=== PATIENT | female | born 1940 | race Caucasian/White ===

== ENCOUNTER → 2017-11-29 | Outpatient (CLI) | payer MEDICARE, OTHER ==
[~2017-11-29] MED LIST: ALBIPROI INH; ALBU90OI INH; ALBU90OI6 INH; ALBU90OI61 INH; AZIT250 PO; CEPH500 PO; COMBIVENT RESPIM4 GM INH; DULERA 200 MCG/13 GM INH; GUAI600T33 PO; LORA.5 PO; MECL25 PO; METPRE4DP PO; NAPR250 PO; PRED20 PO; Prednisone20 MG PO; VARE1 PO; Ventolin/Prove6.7 GM INH; Zithromax250 MG PO; Zofran Odt4 MG SL
[2017-11-29 16:57] LABS: BASOPHILS ABSOLUTE AUTO 0.09 K/mm3 (0.00-0.23); BASOPHILS PERCENT AUTO 1 % (0-2); EOSINOPHILS ABSOLUTE AUTO 0.19 K/mm3 (0.00-0.68); EOSINOPHILS PERCENT AUTO 3 % (0-6); Hematocrit 46.4 % (33.0-51.0); Hemoglobin 15.5 g/dL (11.5-16.0); IMMATURE GRAN ABSOLUTE AUTO 0.01 K/mm3 (0.00-0.10); IMMATURE GRAN PERCENT AUTO 0 % (0-1); LYMPHOCYTES ABSOLUTE AUTO 2.94 K/mm3 (0.84-5.20); LYMPHOCYTES PERCENT AUTO 41 % (21-46); MONOCYTES ABSOLUTE AUTO 0.48 K/mm3 (0.16-1.47); MONOCYTES PERCENT AUTO 7 % (4-13); Mean Corpuscular HGB 29.2 pg (26.0-34.0); Mean Corpuscular HGB Conc 33.4 g/dL (31.5-36.5); Mean Corpuscular Volume 88 fL (80-100); Mean Platelet Volume 8.4 fL (9.1-12.4); NEUTROPHILS ABSOLUTE AUTO 3.52 K/mm3 (1.96-9.15); NEUTROPHILS PERCENT AUTO 49 % (41-73); Platelet Count 397 K/mm3 (150-400); RDW Coefficient Variation 13.7 % (11.7-14.2); RDW Standard Deviation 44.1 fL (35.1-46.3); White Blood Cell Count 7.23 K/mm3 (4.00-11.30)
[2017-11-29 17:12] LABS: Alanine Aminotransfer (ALT/SGP 16 U/L (12-78); Albumin, Blood 4.3 g/dL (3.4-5.0); Albumin/Globulin Ratio 1.2 (0.8-1.8); Alk Phos 54 U/L (40-126); Anion Gap 9 mmol/L (6-16); Aspartate Aminotrans (AST/SGOT 15 U/L (12-37); Bilirubin, Total 0.4 mg/dL (0.1-1.0); Blood Urea Nitrogen 13 mg/dL (8-24); CO2, Blood 28 mmol/L (21-32); Calcium, Blood 9.2 mg/dL (8.5-10.1); Chloride, Blood 101 mmol/L (98-108); Creatinine, Blood 0.62 mg/dL (0.40-1.00); Globulin, Blood 3.6 g/dL (2.2-4.0); Glomerular Filtration Rate >60 (60-); Glucose, Blood 87 mg/dL (70-99); Sodium, Blood 138 mmol/L (136-145); Total Protein, Blood 7.9 g/dL (6.4-8.2)
[2017-11-29 17:15] LABS: Troponin I <0.017 ng/mL (0.000-0.040)
== END | disposition home or self-care (01) ==
LOC: LAB SHORT 16:50 → LAB EV 16:50
PROVIDERS: General Practice
DX: R06.00 Dyspnea, unspecified (principal)
CPT/HCPCS: 80053; 83880; 84484; 85025; 85379

== ENCOUNTER 2018-02-25 22:38 | Inpatient (IN) | payer MEDICARE, OTHER ==
[~2018-02-25] VITALS: Ht 165.1 cm; Wt 40.4 kg
[2018-02-25 23:20] LABS: BASOPHILS ABSOLUTE AUTO 0.09 K/mm3 (0.00-0.23); BASOPHILS PERCENT AUTO 1 % (0-2); EOSINOPHILS ABSOLUTE AUTO 0.13 K/mm3 (0.00-0.68); EOSINOPHILS PERCENT AUTO 1 % (0-6); Hematocrit 45.8 % (33.0-51.0); Hemoglobin 15.1 g/dL (11.5-16.0); IMMATURE GRAN ABSOLUTE AUTO 0.02 K/mm3 (0.00-0.10); IMMATURE GRAN PERCENT AUTO 0 % (0-1); LYMPHOCYTES ABSOLUTE AUTO 4.38 K/mm3 (0.84-5.20); LYMPHOCYTES PERCENT AUTO 46 % (21-46); MONOCYTES ABSOLUTE AUTO 0.57 K/mm3 (0.16-1.47); MONOCYTES PERCENT AUTO 6 % (4-13); Mean Corpuscular HGB 29.2 pg (26.0-34.0); Mean Corpuscular Volume 89 fL (80-100); Mean Platelet Volume 8.6 fL (9.1-12.4); NEUTROPHILS ABSOLUTE AUTO 4.42 K/mm3 (1.96-9.15); NEUTROPHILS PERCENT AUTO 46 % (41-73); Platelet Count 294 K/mm3 (150-400); RDW Coefficient Variation 14.1 % (11.7-14.2); RDW Standard Deviation 45.8 fL (35.1-46.3); Red Blood Cell Count 5.17 M/mm3 (3.80-5.20); White Blood Cell Count 9.61 K/mm3 (4.00-11.30)
[2018-02-25 23:42] LABS: Alanine Aminotransfer (ALT/SGP 19 U/L (12-78); Albumin, Blood 4.1 g/dL (3.4-5.0); Albumin/Globulin Ratio 1.2 (0.8-1.8); Alk Phos 49 U/L (50-136); Anion Gap 10 mmol/L (6-16); Aspartate Aminotrans (AST/SGOT 15 U/L (12-37); Bilirubin, Total 0.3 mg/dL (0.1-1.0); Blood Urea Nitrogen 11 mg/dL (8-24); Bun/Creatinine Ratio 23.5 (12.0-20.0); CO2, Blood 25 mmol/L (21-32); Calcium, Blood 8.1 mg/dL (8.5-10.1); Chloride, Blood 105 mmol/L (98-108); Creatinine, Blood 0.47 mg/dL (0.40-1.00); Globulin, Blood 3.3 g/dL (2.2-4.0); Glomerular Filtration Rate >60 (60-); Glucose, Blood 82 mg/dL (70-99); Potassium, Blood 3.4 mmol/L (3.5-5.5); Sodium, Blood 140 mmol/L (136-145); Total Protein, Blood 7.4 g/dL (6.4-8.2)
[2018-02-26 00:13] LABS: Source, Urine Voided
[2018-02-26 00:19] LABS: Bilirubin, Urine Neg (Neg); Blood, Urine 3+ (Neg); Glucose Qualitative, Urine Neg (Neg); Ketones, Urine 1+ (Neg); Leukocyte Esterase, Urine Neg (Neg); Nitrite, Urine Pos (Neg); Protein, Urine 2+ (Neg); Urobilinogen, Urine NORM (Normal)
[2018-02-26 00:27] LABS: Appearance, Urine Hazy (Clear); Color, Urine Pale Yellow (P-Yellow)
[2018-02-26 00:28] LABS: Bacteria Many /hpf; Squamous Epithelial Cells Few /hpf (Few)
[2018-02-26 01:15] LABS: International Normalized Ratio 0.99; Prothrombin Time Results 10.2 Sec (9.7-11.5)
[2018-02-26 04:59] LABS: Hematocrit 42.1 % (33.0-51.0); Hemoglobin 13.7 g/dL (11.5-16.0); Mean Corpuscular HGB 28.3 pg (26.0-34.0); Mean Corpuscular HGB Conc 32.5 g/dL (31.5-36.5); Mean Corpuscular Volume 87 fL (80-100); Mean Platelet Volume 8.7 fL (9.1-12.4); Platelet Count 309 K/mm3 (150-400); RDW Coefficient Variation 14.1 % (11.7-14.2); RDW Standard Deviation 45.2 fL (35.1-46.3); Red Blood Cell Count 4.84 M/mm3 (3.80-5.20); White Blood Cell Count 8.85 K/mm3 (4.00-11.30)
[2018-02-26 05:29] LABS: Alanine Aminotransfer (ALT/SGP 17 U/L (12-78); Albumin, Blood 3.7 g/dL (3.4-5.0); Albumin/Globulin Ratio 1.2 (0.8-1.8); Alk Phos 45 U/L (50-136); Anion Gap 13 mmol/L (6-16); Aspartate Aminotrans (AST/SGOT 20 U/L (12-37); Bilirubin, Total 1.2 mg/dL (0.1-1.0); Blood Urea Nitrogen 11 mg/dL (8-24); Bun/Creatinine Ratio 27.7 (12.0-20.0); CO2, Blood 21 mmol/L (21-32); Chloride, Blood 108 mmol/L (98-108); Globulin, Blood 3.1 g/dL (2.2-4.0); Glomerular Filtration Rate >60 (60-); Glucose, Blood 217 mg/dL (70-99); Potassium, Blood 3.5 mmol/L (3.5-5.5); Sodium, Blood 142 mmol/L (136-145); Total Protein, Blood 6.8 g/dL (6.4-8.2)
[2018-02-26 08:54] LABS: Troponin I 0.804 ng/mL (0.000-0.040)
[2018-02-26 16:07] LABS: Troponin I 0.671 ng/mL (0.000-0.040)
[2018-02-27] MEDS ORDERED: BUSP5 PO (14:48)
[2018-02-27] MEDS ORDERED: COMBIVENT RESPIM4 GM INH (14:48)
[2018-02-27] MEDS ORDERED: Nitrostat0.4 MG SL (16:11)
== END 2018-02-26 17:58 | disposition left against medical advice (07) | DRG 280 ==
LOC: ER 22:38 → MEDS 22:39
PROVIDERS: Emergency Medicine; Internal Medicine
DX: I21.A1 Myocardial infarction type 2 (principal); J96.90 Respiratory failure, unspecified, unspecified whether with hypoxia or hypercapnia; J44.1 Chronic obstructive pulmonary disease with (acute) exacerbation; F41.9 Anxiety disorder, unspecified; F17.210 Nicotine dependence, cigarettes, uncomplicated; E87.6 Hypokalemia; E78.5 Hyperlipidemia, unspecified; Z53.20 Procedure and treatment not carried out because of patient's decision for unspecified reasons; I25.10 Atherosclerotic heart disease of native coronary artery without angina pectoris; Z99.81 Dependence on supplemental oxygen
CPT/HCPCS: 36415; 71046; 80053; 81001; 82550; 83880; 84484; 85025; 85027; 85610; 85730; 87077; 87086; 87186; 93005; 93010; 93306; 94640; 94760; 96361; 96365; 96375; 96376; 99285; G0378; J0696; J1644; J2930; J7030

== ENCOUNTER → 2018-02-27 | Outpatient (CLI) | payer MEDICARE ==
[~2018-02-27] MED LIST changes: +BUSP5 PO; +Nitrostat0.4 MG SL
[2018-02-27 13:52] LABS: BASOPHILS ABSOLUTE AUTO 0.03 K/mm3 (0.00-0.23); BASOPHILS PERCENT AUTO 0 % (0-2); EOSINOPHILS PERCENT AUTO 0 % (0-6); Hematocrit 42.1 % (33.0-51.0); Hemoglobin 14.5 g/dL (11.5-16.0); IMMATURE GRAN ABSOLUTE AUTO 0.06 K/mm3 (0.00-0.10); IMMATURE GRAN PERCENT AUTO 0 % (0-1); LYMPHOCYTES ABSOLUTE AUTO 3.39 K/mm3 (0.84-5.20); LYMPHOCYTES PERCENT AUTO 24 % (21-46); MONOCYTES ABSOLUTE AUTO 1.06 K/mm3 (0.16-1.47); MONOCYTES PERCENT AUTO 7 % (4-13); Mean Corpuscular HGB 29.8 pg (26.0-34.0); Mean Corpuscular HGB Conc 34.4 g/dL (31.5-36.5); Mean Corpuscular Volume 87 fL (80-100); Mean Platelet Volume 8.8 fL (9.1-12.4); NEUTROPHILS ABSOLUTE AUTO 9.79 K/mm3 (1.96-9.15); NEUTROPHILS PERCENT AUTO 68 % (41-73); Platelet Count 365 K/mm3 (150-400); RDW Coefficient Variation 14.7 % (11.7-14.2); RDW Standard Deviation 46.7 fL (35.1-46.3); Red Blood Cell Count 4.86 M/mm3 (3.80-5.20); White Blood Cell Count 14.33 K/mm3 (4.00-11.30)
[2018-02-27 14:11] LABS: Alanine Aminotransfer (ALT/SGP 16 U/L (12-78); Albumin, Blood 4.1 g/dL (3.4-5.0); Albumin/Globulin Ratio 1.5 (0.8-1.8); Alk Phos 44 U/L (40-126); Anion Gap 14 mmol/L (6-16); Aspartate Aminotrans (AST/SGOT 15 U/L (12-37); Bilirubin, Total 0.3 mg/dL (0.1-1.0); Blood Urea Nitrogen 19 mg/dL (8-24); Bun/Creatinine Ratio 25.3 (12.0-20.0); CO2, Blood 23 mmol/L (21-32); CPK Creatine Kinase 119 U/L (26-192); Calcium, Blood 9.3 mg/dL (8.5-10.1); Chloride, Blood 104 mmol/L (98-108); Creatinine, Blood 0.75 mg/dL (0.40-1.00); Globulin, Blood 2.7 g/dL (2.2-4.0); Glomerular Filtration Rate >60 (60-); Glucose, Blood 96 mg/dL (70-99); Potassium, Blood 4.3 mmol/L (3.5-5.5); Sodium, Blood 141 mmol/L (136-145); Thyroid Stimulating Hormone 1.813 uIU/mL (0.360-4.800); Total Protein, Blood 6.8 g/dL (6.4-8.2); Troponin I 0.436 ng/mL (0.000-0.040)
== END ==
LOC: LAB SHORT 13:44 → LAB EV 13:44
PROVIDERS: General Practice
DX: J44.9 Chronic obstructive pulmonary disease, unspecified (principal); I21.9 Acute myocardial infarction, unspecified; R53.81 Other malaise
CPT/HCPCS: 80053; 82550; 84443; 84484; 85025; 85379

== ENCOUNTER 2018-03-03 10:55 | Observation (INO) | payer MEDICARE ==
[~2018-03-03] VITALS: Ht 165.1 cm; Wt 45.5 kg
[2018-03-03] MEDS ORDERED: ATOR40TA PO (11:19)
[2018-03-03] MEDS ORDERED: LISI20 PO (11:20)
[2018-03-03] MEDS ORDERED: METO25ER PO (11:20)
[2018-03-03 11:21] LABS: BASOPHILS ABSOLUTE AUTO 0.05 K/mm3 (0.00-0.23); BASOPHILS PERCENT AUTO 1 % (0-2); EOSINOPHILS ABSOLUTE AUTO 0.16 K/mm3 (0.00-0.68); EOSINOPHILS PERCENT AUTO 2 % (0-6); Hematocrit 47.2 % (33.0-51.0); Hemoglobin 15.5 g/dL (11.5-16.0); IMMATURE GRAN ABSOLUTE AUTO 0.02 K/mm3 (0.00-0.10); IMMATURE GRAN PERCENT AUTO 0 % (0-1); LYMPHOCYTES ABSOLUTE AUTO 2.54 K/mm3 (0.84-5.20); LYMPHOCYTES PERCENT AUTO 34 % (21-46); MONOCYTES ABSOLUTE AUTO 0.34 K/mm3 (0.16-1.47); MONOCYTES PERCENT AUTO 5 % (4-13); Mean Corpuscular HGB 29.4 pg (26.0-34.0); Mean Corpuscular HGB Conc 32.8 g/dL (31.5-36.5); Mean Corpuscular Volume 90 fL (80-100); Mean Platelet Volume 8.4 fL (9.1-12.4); NEUTROPHILS ABSOLUTE AUTO 4.38 K/mm3 (1.96-9.15); NEUTROPHILS PERCENT AUTO 59 % (41-73); Platelet Count 371 K/mm3 (150-400); RDW Coefficient Variation 14.1 % (11.7-14.2); RDW Standard Deviation 47.1 fL (35.1-46.3); Red Blood Cell Count 5.27 M/mm3 (3.80-5.20); White Blood Cell Count 7.49 K/mm3 (4.00-11.30)
[2018-03-03 11:40] LABS: Alanine Aminotransfer (ALT/SGP 19 U/L (12-78); Albumin, Blood 4.1 g/dL (3.4-5.0); Albumin/Globulin Ratio 1.3 (0.8-1.8); Alk Phos 48 U/L (50-136); Anion Gap 10 mmol/L (6-16); Aspartate Aminotrans (AST/SGOT 14 U/L (12-37); Bilirubin, Total 0.4 mg/dL (0.1-1.0); Blood Urea Nitrogen 13 mg/dL (8-24); Bun/Creatinine Ratio 25.1 (12.0-20.0); CO2, Blood 26 mmol/L (21-32); Calcium, Blood 8.8 mg/dL (8.5-10.1); Chloride, Blood 103 mmol/L (98-108); Creatinine, Blood 0.52 mg/dL (0.40-1.00); Globulin, Blood 3.2 g/dL (2.2-4.0); Glomerular Filtration Rate >60 (60-); Glucose, Blood 70 mg/dL (70-99); Potassium, Blood 3.6 mmol/L (3.5-5.5); Sodium, Blood 139 mmol/L (136-145); Total Protein, Blood 7.3 g/dL (6.4-8.2); Troponin I <0.015 ng/mL (0.000-0.040)
[2018-03-04 05:13] LABS: BASOPHILS ABSOLUTE AUTO 0.06 K/mm3 (0.00-0.23); BASOPHILS PERCENT AUTO 1 % (0-2); EOSINOPHILS ABSOLUTE AUTO 0.19 K/mm3 (0.00-0.68); EOSINOPHILS PERCENT AUTO 2 % (0-6); Hematocrit 43.2 % (33.0-51.0); IMMATURE GRAN ABSOLUTE AUTO 0.01 K/mm3 (0.00-0.10); IMMATURE GRAN PERCENT AUTO 0 % (0-1); LYMPHOCYTES ABSOLUTE AUTO 3.98 K/mm3 (0.84-5.20); LYMPHOCYTES PERCENT AUTO 51 % (21-46); MONOCYTES ABSOLUTE AUTO 0.58 K/mm3 (0.16-1.47); MONOCYTES PERCENT AUTO 7 % (4-13); Mean Corpuscular HGB 28.7 pg (26.0-34.0); Mean Corpuscular HGB Conc 32.4 g/dL (31.5-36.5); Mean Corpuscular Volume 89 fL (80-100); Mean Platelet Volume 8.7 fL (9.1-12.4); NEUTROPHILS ABSOLUTE AUTO 2.98 K/mm3 (1.96-9.15); NEUTROPHILS PERCENT AUTO 38 % (41-73); Platelet Count 376 K/mm3 (150-400); RDW Coefficient Variation 14.3 % (11.7-14.2); RDW Standard Deviation 46.2 fL (35.1-46.3); Red Blood Cell Count 4.87 M/mm3 (3.80-5.20)
[2018-03-04 05:44] LABS: Alanine Aminotransfer (ALT/SGP 18 U/L (12-78); Albumin, Blood 3.7 g/dL (3.4-5.0); Albumin/Globulin Ratio 1.2 (0.8-1.8); Alk Phos 42 U/L (50-136); Anion Gap 9 mmol/L (6-16); Aspartate Aminotrans (AST/SGOT 14 U/L (12-37); Bilirubin, Total 0.5 mg/dL (0.1-1.0); Blood Urea Nitrogen 16 mg/dL (8-24); Bun/Creatinine Ratio 25.9 (12.0-20.0); CO2, Blood 27 mmol/L (21-32); Calcium, Blood 8.5 mg/dL (8.5-10.1); Chloride, Blood 105 mmol/L (98-108); Creatinine, Blood 0.62 mg/dL (0.40-1.00); Globulin, Blood 3.2 g/dL (2.2-4.0); Glomerular Filtration Rate >60 (60-); Glucose, Blood 87 mg/dL (70-99); Potassium, Blood 3.7 mmol/L (3.5-5.5); Sodium, Blood 141 mmol/L (136-145); Total Protein, Blood 6.9 g/dL (6.4-8.2)
[2018-03-04] MEDS ORDERED: ASPI325 PO (18:28)
== END 2018-03-04 18:44 | disposition home or self-care (01) ==
LOC: ER 10:55 → MEDS 10:56 → ER 12:11 → MEDS 12:11
PROVIDERS: Emergency Medicine; Hospitalist
DX: R06.02 Shortness of breath (principal); R79.89 Other specified abnormal findings of blood chemistry; J44.9 Chronic obstructive pulmonary disease, unspecified; E78.5 Hyperlipidemia, unspecified; F41.9 Anxiety disorder, unspecified; F17.210 Nicotine dependence, cigarettes, uncomplicated; I10 Essential (primary) hypertension; Z86.73 Personal history of transient ischemic attack (TIA), and cerebral infarction without residual deficits; Z88.0 Allergy status to penicillin; Z88.1 Allergy status to other antibiotic agents; Z88.5 Allergy status to narcotic agent; Z79.899 Other long term (current) drug therapy; Z79.82 Long term (current) use of aspirin
CPT/HCPCS: 36415; 71046; 78452; 80053; 84484; 85025; 93005; 93010; 93017; 94640; 94667; 94760; 94761; 94762; 99285-25; A9500; G0378; J0706; J2785

== ENCOUNTER → 2018-04-13 | Outpatient (CLI) | payer MEDICARE ==
[~2018-04-13] MED LIST changes: +ASPI325 PO; +ATOR40TA PO; +LISI20 PO; +METO25ER PO
== END ==
LOC: LAB SHORT 13:09 → LAB EV 13:09
DX: J40 Bronchitis, not specified as acute or chronic (principal)
CPT/HCPCS: 87070; 87077; 87186; 87205

== ENCOUNTER 2019-10-03 13:35 | Inpatient (IN) | payer MEDICARE ==
[~2019-10-03] VITALS: Ht 165.1 cm; Wt 45.4 kg
[~2019-10-03 13:35] MED LIST changes: -ASPI325 PO; +Aspir 8181 MG PO; +STIOLTO RESPIMAT4 GM INH
[2019-10-03] MEDS ORDERED: PRED20 PO (13:59)
[2019-10-03] MEDS ORDERED: MONDOXYNE NL100 MG PO (13:59)
[2019-10-03] MEDS ORDERED: ASMANEX HFA13 G1 INH (13:59)
[2019-10-03] MEDS ORDERED: MONT4 PO (14:00)
[2019-10-03] MEDS ORDERED: Ventolin/Prove6.7 GM INH (14:00)
[2019-10-03 14:13] LABS: BASOPHILS ABSOLUTE AUTO 0.07 K/mm3 (0.00-0.23); BASOPHILS PERCENT AUTO 1 % (0-2); EOSINOPHILS ABSOLUTE AUTO 0.23 K/mm3 (0.00-0.68); EOSINOPHILS PERCENT AUTO 3 % (0-6); Hematocrit 47.2 % (33.0-51.0); Hemoglobin 15.5 g/dL (11.5-16.0); IMMATURE GRAN ABSOLUTE AUTO 0.01 K/mm3 (0.00-0.10); IMMATURE GRAN PERCENT AUTO 0 % (0-1); LYMPHOCYTES ABSOLUTE AUTO 2.56 K/mm3 (0.84-5.20); LYMPHOCYTES PERCENT AUTO 29 % (21-46); MONOCYTES ABSOLUTE AUTO 0.73 K/mm3 (0.16-1.47); MONOCYTES PERCENT AUTO 8 % (4-13); Mean Corpuscular HGB 29.5 pg (26.0-34.0); Mean Corpuscular HGB Conc 32.8 g/dL (31.5-36.5); Mean Corpuscular Volume 90 fL (80-100); Mean Platelet Volume 8.4 fL (9.1-12.4); NEUTROPHILS ABSOLUTE AUTO 5.21 K/mm3 (1.96-9.15); NEUTROPHILS PERCENT AUTO 59 % (41-73); Platelet Count 423 K/mm3 (150-400); RDW Coefficient Variation 13.6 % (11.7-14.2); RDW Standard Deviation 45.3 fL (35.1-46.3); Red Blood Cell Count 5.26 M/mm3 (3.80-5.20); White Blood Cell Count 8.81 K/mm3 (4.00-11.30)
[2019-10-03 14:27] LABS: Alanine Aminotransfer (ALT/SGP 16 U/L (12-78); Albumin, Blood 4.1 g/dL (3.4-5.0); Albumin/Globulin Ratio 1.1 (0.8-1.8); Alk Phos 56 U/L (50-136); Anion Gap 9 mmol/L (6-16); Aspartate Aminotrans (AST/SGOT 20 U/L (12-37); Bilirubin, Total 0.3 mg/dL (0.1-1.0); Blood Urea Nitrogen 12 mg/dL (8-24); Bun/Creatinine Ratio 26.1 (12.0-20.0); CO2, Blood 24 mmol/L (21-32); Calcium, Blood 8.8 mg/dL (8.5-10.1); Chloride, Blood 103 mmol/L (98-108); Creatinine, Blood 0.46 mg/dL (0.40-1.00); Globulin, Blood 3.6 g/dL (2.2-4.0); Glomerular Filtration Rate >60 (60-); Glucose, Blood 85 mg/dL (70-99); Potassium, Blood 3.5 mmol/L (3.5-5.5); Sodium, Blood 136 mmol/L (136-145); Total Protein, Blood 7.7 g/dL (6.4-8.2)
[2019-10-03] MEDS ORDERED: COMBIVENT RESPIM4 GM INH (17:29)
--- NOTE | 2019-10-03 23:36 | NUR ---
BEGINNING SHIFT SUMMARY ASSUMED CARE OF PT AT 1900. PT IS A/O X4. PT IS A TRANSFER FROM U. PT REFUSED FLU AND LOVENOX SHOT BECAUSE SHE DOESNT BELEIVE IN GETTING ANYTHING THAT SHE DOESNT NEED, PT EDUCATED. PT C/O SOB, PLACED ON 3L NC, EXPIRATORY WHEEZES AND COARSE CRACKLES HEARD ON AUSCALTATION, PT GETS SOB WITH ACTIVITY. HEART SOUNDS REGULAR, PERIPHERAL PULSES STRONG. PT IS 1P SBA TO COMMODE DUE TO DYSPNEA. PT STATES THAT SHE HOPES TO GO HOME TOMORROW TO HER DAUGHTER, WHO SHE CARES FOR WITH HER GRANDDAUGHTER. CALL LIGHT IN REACH, BED IN LOWEST POSTION, WILL CONTINUE TO MONITOR.
--- NOTE | 2019-10-04 04:37 | NUR ---
END SHIFT SUMMARY NO ACUTE CHANGES NOTED T/O THE NIGHT. PT SLEPT MOST OF THE NIGHT EXCEPT TO USE THE BED SIDE COMMODE. PT C/O HEADACHE THIS MORNING, PT STATES ITS PROBABLY FROM THE LACK OF CAFFINE, SHE USUALLY DRINKS LOTS OF COFFEE AND SODA, MEDICATED PER EMAR. PT STATES THAT SHE FEELS MUCH BETTER AND HOPES TO GO HOME, PT STATED THAT IT WAS HARD FOR HER TO GET HER MEDICATION AT [facility] SO THIS IS WHY SHE THINKS SHES HERE. CALL LIGHT IN REACH, BED IN LOWEST POSTION, WILL CONTINUE TO MONITOR UNTIL DAYSHIFT NURSE ARRIVES.
[2019-10-04 05:38] LABS: Hematocrit 41.3 % (33.0-51.0); Hemoglobin 13.6 g/dL (11.5-16.0); Mean Corpuscular HGB 29.2 pg (26.0-34.0); Mean Corpuscular HGB Conc 32.9 g/dL (31.5-36.5); Mean Corpuscular Volume 89 fL (80-100); Mean Platelet Volume 8.6 fL (9.1-12.4); Platelet Count 371 K/mm3 (150-400); RDW Coefficient Variation 13.6 % (11.7-14.2); RDW Standard Deviation 44.5 fL (35.1-46.3); Red Blood Cell Count 4.65 M/mm3 (3.80-5.20); White Blood Cell Count 3.88 K/mm3 (4.00-11.30)
[2019-10-04 05:59] LABS: Anion Gap 9 mmol/L (6-16); Blood Urea Nitrogen 17 mg/dL (8-24); Bun/Creatinine Ratio 37.7 (12.0-20.0); CO2, Blood 23 mmol/L (21-32); Calcium, Blood 8.8 mg/dL (8.5-10.1); Chloride, Blood 102 mmol/L (98-108); Creatinine, Blood 0.45 mg/dL (0.40-1.00); Glomerular Filtration Rate >60 (60-); Glucose, Blood 177 mg/dL (70-99); Sodium, Blood 134 mmol/L (136-145)
[2019-10-04 06:19] LABS: BASOPHILS PERCENT MAN 0 % (0-2); EOSINOPHILS PERCENT MAN 0 % (0-6); LYMPHOCYTES ABSOLUTE MAN 0.89 K/mm3 (0.84-5.20); LYMPHOCYTES PERCENT MAN 23 % (21-46); MONOCYTES PERCENT MAN 0 % (4-13); NEUTROPHILS ABSOLUTE MAN 2.98 K/mm3 (1.96-9.15); SEG NEUTROPHILS PERCENT MAN 77 % (41-73); TOTAL CELLS COUNTED 100
--- NOTE | 2019-10-04 15:23 | NUR ---
SHIFT SUMMARY PT IS A/O X 4 AND HAS NO C/O PAIN. SHE APPEARS TO BE SOB WITH EXERTION BUT HAS NO S/S OF RESPIRATORY DISTRESS. SHE IS ON 2LPM VIA N.C AND IS SATING IN THE LOW 90'S. PT IS HIGH ENERGY AND REPORTS THAT THIS IS HER BASELINE SHE IS BUSY IN HER ROOM WITH BOOKS AND TV AND FAMILY VISITING. PT IS PLESANT AND COOPERATIVE WITH HER CARE. SHE HAS BEEN USING THE [facility] FOR TOILETING. PT IS ABLE TO MAKE HER NEEDS KNOWN AND CALLS FOR HELP WHEN NEEDED. CALL LIGHT IS IN REACH.
--- NOTE | 2019-10-04 19:40 | NUR ---
1931 EXPLAINED TO PATIENT THAT A SPUTUM SAMPLE AND A FLU SWAB WAS ORDERED. PATIENT REFUSED FLU SWAB. STATED SHE IS RECOUPERATING VERY FAST. STATES SHE HAS BEEN WALKING IN THE HALLS TODAY AND FEELING MUCH BETTER.
--- NOTE | 2019-10-04 23:26 | NUR ---
3470 PHYSICIAN CORRESPONDENCE ALERTED ON-CALL THAT ABOUT 10 MINUTES AFTER STARTING AZITHROMYCIN PATIENT STATED PAIN TO ARM THAT ABX WAS RUNNING TO. STOPPED ABX AND FLUSHED THE LINE. PATIENT STATED RELIEF SHORTLY AFTER. ON-CALL STATED TO HAVE ATTENDING DAY PHYSICIAN ADDRESS.
--- NOTE | 2019-10-05 07:30 | NUR ---
SHIFT SUMMARY A/O, ABLE TO MAKE NEEDS KNOWN. CALLS AND ANSWERS QUESTIONS APPROPRIATELY. INDEPENDENT IN THE ROOM. MULTIPLE REQUESTS FROM NURSING STAFF DURING SHIFT. EXPLAINED THAT DOCTOR HAD ORDERED A SPUTUM SAMPLE AND A FLU SWAB. PATIENT STATED "WHATS THAT?" THIS RN STATED "IT IS A TINY QTIP THAT IS PLACED IN THE NOSE AND SWABBED AGAINST THE BACK OF THE CAVITY". PATIENT STATED "OH, NO I DONT WANT THAT". STATED "I AM DOING SO MUCH BETTER THAN WHEN I GOT HERE, I DON'T HAVE THE FLU". STATED "I DON'T UNDERSTAND WHY THEY DIDN'T DO THIS WHEN I FIRST GOT HERE". THIS RN STATED "NURSING STAFF WILL BE PLACING YOU IN ISOLATION, WHICH MEANS THAT YOU WE WILL BE COMING IN TO YOUR ROOM WITH GOWNS, MASKS AND GLOVES". PATIENT STATED DISTASTE FOR BEING IN ISOLATION. THIS RN ALSO STATED THAT PATIENT WILL NEED TO WEAR A MASK WHEN OUT OF HER ROOM. LATER PATIENT EXPRESSED THAT SHE MIGHT BE WILLING TO GET THE TEST DONE TOMORROW. PATIENT ALSO EXPRESSED AFTER INFUSING 1ST DOSE OF AZITHROMCIN THAT HER R ARM AND CHEST WERE HURTING. IMMEDIATELY STOPPED INFUSION AND FLUSHED. VSS CHECKED WNL. STATED RELIEF AFTER ABOUT 2 MINUTES. APPEARED TO REST APPROXIMATELY 3-4 HOURS. TELEMETRY REPORTED SR IN 70'S THROUGHOUT SHIFT. BED REMAINED IN LOWEST POSITION. CALL LIGHT AND BELONGINGS WITHIN REACH. CONTINUED TO MONITOR THROUGHOUT SHIFT. REPORT GIVEN TO ONCOMING RN.
--- NOTE | 2019-10-05 08:57 | NUR ---
AM MEDS PT REFUSED MUCINEX, SAYS SHE TOOK HER OWN. EDUCATED PT ON DANGERS OF TAKING HOME MEDS WITHOUT MD APPROVAL. PT RESISTANT TO EDUCATION.
[2019-10-05] MEDS ORDERED: DELTASONE20 MG PO (13:16)
[2019-10-05] MEDS ORDERED: GUAI600T33 PO (13:17)
[2019-10-05] MEDS ORDERED: ACET500 PO (13:18)
[2019-10-05] MEDS ORDERED: ALBU2.5V5 INH (13:19)
--- NOTE | 2019-10-05 15:24 | NUR ---
DISCHARGE DISCHARGE INSTRUCTIONS, MEDICATION LIST AND FOLLOW UP APPOINTENT REVIEWED WITH PT. [facility] WILL BE CALLING PT TOMORROW TO ARRANGE AN APPOINTMENT PER STACIE NAQVI. [facility] WILL DELIVER NEBULIZER MACHINE AND NEW SCRIPS FAXED TO [facility] PER PT PREFERENCE. TELE BOX REMOVED AND RETURNED TO PCU. PT ESCORTED OUT VIA W/C.
== END 2019-10-05 14:09 | disposition home or self-care (01) | DRG 189 ==
LOC: ER 13:35 → MEDS 17:34
PROVIDERS: Physician Assistant; ADMIT Internal Medicine
DX: J96.21 Acute and chronic respiratory failure with hypoxia (principal); J44.1 Chronic obstructive pulmonary disease with (acute) exacerbation; M62.84 Sarcopenia; Z79.82 Long term (current) use of aspirin; E78.5 Hyperlipidemia, unspecified; Z86.73 Personal history of transient ischemic attack (TIA), and cerebral infarction without residual deficits; F41.9 Anxiety disorder, unspecified; F17.200 Nicotine dependence, unspecified, uncomplicated; Z99.81 Dependence on supplemental oxygen; J96.22 Acute and chronic respiratory failure with hypercapnia
CPT/HCPCS: 36415; 71046; 80048; 80053; 85025; 93005; 93010; 94640; 94644; 94760; 96374; 99285-25; J0456; J2930; J7050

== ENCOUNTER 2019-12-14 14:17 | Inpatient (IN) | payer MEDICARE, OTHER ==
[~2019-12-14] VITALS: Ht 165.1 cm; Wt 46.8 kg
[~2019-12-14 14:17] MED LIST changes: +ACET500 PO; +ALBU2.5V5 INH; +ASMANEX HFA13 G1 INH; +DELTASONE20 MG PO; +MONDOXYNE NL100 MG PO; +MONT4 PO
[2019-12-14] MEDS ORDERED: STIOLTO RESPIMAT4 GM INH (15:28)
[2019-12-14 15:29] LABS: BASOPHILS ABSOLUTE AUTO 0.11 K/mm3 (0.00-0.23); BASOPHILS PERCENT AUTO 1 % (0-2); EOSINOPHILS ABSOLUTE AUTO 0.13 K/mm3 (0.00-0.68); EOSINOPHILS PERCENT AUTO 1 % (0-6); Hematocrit 50.9 % (33.0-51.0); Hemoglobin 16.6 g/dL (11.5-16.0); IMMATURE GRAN ABSOLUTE AUTO 0.12 K/mm3 (0.00-0.10); IMMATURE GRAN PERCENT AUTO 1 % (0-1); LYMPHOCYTES PERCENT AUTO 10 % (21-46); MONOCYTES ABSOLUTE AUTO 0.63 K/mm3 (0.16-1.47); MONOCYTES PERCENT AUTO 3 % (4-13); Mean Corpuscular HGB 29.7 pg (26.0-34.0); Mean Corpuscular HGB Conc 32.6 g/dL (31.5-36.5); Mean Corpuscular Volume 91 fL (80-100); Mean Platelet Volume 8.4 fL (9.1-12.4); NEUTROPHILS ABSOLUTE AUTO 16.61 K/mm3 (1.96-9.15); NEUTROPHILS PERCENT AUTO 85 % (41-73); Platelet Count 395 K/mm3 (150-400); RDW Coefficient Variation 13.6 % (11.7-14.2); RDW Standard Deviation 46.3 fL (35.1-46.3); Red Blood Cell Count 5.59 M/mm3 (3.80-5.20)
[2019-12-14 15:46] LABS: Source, Urine Clean Catch
[2019-12-14 15:50] LABS: Bilirubin, Urine Neg (Neg); Blood, Urine 4+ (Neg); Glucose Qualitative, Urine Neg (Neg); Ketones, Urine 1+ (Neg); Leukocyte Esterase, Urine Neg (Neg); Nitrite, Urine Neg (Neg); Protein, Urine 3+ (Neg); Urobilinogen, Urine NORM (Normal)
[2019-12-14 15:56] LABS: Appearance, Urine Hazy (Clear); Color, Urine Pale Yellow (P-Yellow)
[2019-12-14 15:57] LABS: Bacteria Many /hpf; Squamous Epithelial Cells Few /hpf (Few); White Blood Cells, Urine 0-2 /hpf (0-5)
[2019-12-14 18:31] LABS: Alanine Aminotransfer (ALT/SGP 17 U/L (12-78); Albumin/Globulin Ratio 1.1 (0.8-1.8); Alk Phos 60 U/L (50-136); Anion Gap 9 mmol/L (6-16); Aspartate Aminotrans (AST/SGOT 19 U/L (12-37); Bilirubin, Total 0.3 mg/dL (0.1-1.0); Blood Urea Nitrogen 6 mg/dL (8-24); CO2, Blood 23 mmol/L (21-32); Calcium, Blood 9.1 mg/dL (8.5-10.1); Chloride, Blood 103 mmol/L (98-108); Creatinine, Blood 0.46 mg/dL (0.40-1.00); Globulin, Blood 3.7 g/dL (2.2-4.0); Glomerular Filtration Rate >60 (60-); Glucose, Blood 112 mg/dL (70-99); Magnesium, Blood 2.3 mg/dL (1.6-2.4); Potassium, Blood 4.5 mmol/L (3.5-5.5); Sodium, Blood 135 mmol/L (136-145); Total Protein, Blood 7.7 g/dL (6.4-8.2); Troponin I 0.018 ng/mL (0.000-0.040)
[2019-12-14 20:31] LABS: PCO2 Arterial 48.7 mmHg (35-45); PO2 Arterial 109 mmHg (80-100); pH Blood Arterial 7.34 (7.35-7.45)
--- NOTE | 2019-12-14 22:20 | NUR ---
PT UNABLE TO ANSWER QUESTIONS ABOUT HER MEDICATIONS AND HISTORY AT THIS TIME-REVIEWED OLD RECORDS.
--- NOTE | 2019-12-14 22:20 | NUR ---
RECEIVED PT FROM ER VIA [facility]. PT AWAKENED TO VERBAL AND BECAME VERY ANXIOUS. RESP 30'S, PT ORTHOPNEIC AND SPEAKING IN BROKEN SENTENCES. ATTEMPTED TO REVIEW MEDS AND HISTORY WITH PT-PT STATES THAT SHE LIVES AT HOME ALONE, BUT IS UNAWARE OF HOW MUCH O2 SHE WEARS AT HOME AND ALSO IS UNAWARE OF HER MEDICATIONS. PT ORIENTED TO SELF AND FOLLOWS COMMANDS. CHAPPELL, BUT APPEARS GENERALLY WEAK. TEMP 99.3-ECG SHOWS SR TO ST WITH RATE 90-110'S. BP ELEVATED 191/100. LUNGS COARSE AND DIMINISHED IN BASES. SATS>90% ON 3 LITERS NASAL CANULA. MOIST, NON-PRODUCTIVE COUGH NOTED. NPO-ASPIRATION PRECAUTIONS. PT INCONTINENT OF BOTH URINE AND STOOL. ECTOR CARE DONE AND ATTENDS PLACED.
--- NOTE | 2019-12-14 23:46 | NUR ---
PT RESTING QUIETLY WHEN NOT DISTURBED. BP 137/79-HR 80'S SR. LUNGS REMAIN COARSE AFTER NEB GIVEN, BUT RR 20'S AND SATS>90% ON 3 LITERS NASAL CANULA.
[2019-12-15 00:36] LABS: Adenovirus Not Detected (NOT DETECT); Bordetella pertussis Not Detected (NOT DETECT); Chlamydophila pneumoniae Not Detected (NOT DETECT); Coronavirus 229E Not Detected (NOT DETECT); Coronavirus HKU1 Not Detected (NOT DETECT); Coronavirus NL63 Not Detected (NOT DETECT); Coronavirus OC43 Not Detected (NOT DETECT); Human Metapneumovirus Not Detected (NOT DETECT); Human Rhinovirus/Enterovirus Not Detected (NOT DETECT); Influenza A/2009-H1 Not Detected (NOT DETECT); Influenza A/H1 Not Detected (NOT DETECT); Influenza A/H3 Not Detected (NOT DETECT); Influenza B Not Detected (NOT DETECT); Mycoplasma pneumoniae Not Detected (NOT DETECT); Parainfluenza Virus 1 Not Detected (NOT DETECT); Parainfluenza Virus 2 Not Detected (NOT DETECT); Parainfluenza Virus 3 Not Detected (NOT DETECT); Parainfluenza Virus 4 Not Detected (NOT DETECT); Respiratory Syncytial Virus Not Detected (NOT DETECT)
--- NOTE | 2019-12-15 04:00 | NUR ---
PT FOUND SITTING AT BEDSIDE WITH LEGS THOUGH THE SIDE RAILS. PT REQUESTED TO GET OOB AND "GO TO THE BATHROOM." ASSISTED PT UP TP BEDSIDE COMMODE WHERE SHE WAS ABLE TO VOID AND HAD A SMALL, FORMED, BROWN STOOL. SOB WITH EXERTION CONTINUES, BUT LESS THAN PRIOR ASSESSMENT. LUNGS TIGHT AND WZ THROUGH OUT. SATS>90% ON 3 LITERS NASAL CANULA. PT RE-ORIENTED WITH VERBAL CUES AND STATES THAT SHE NORMALLY WEARS 1.5-2 LITERS NASAL CANULA AT HOME. PT GIVEN SIPS OF WATER AND WAS ABLE TO SWALLOW WITHOUT DIFFICULTY.
--- NOTE | 2019-12-15 04:12 | NUR ---
PT WAS GIVEN DUO NEB DUE TO WZ-PT HAS MOIST COUGH, BUT IT REMAINS NON-PRODUCTIVE. LAB HERE TO DO AM LABS-PT REFUSING SHE STATES SHE IS "TOO SHORT OF BREATH." LAB TO RETURN AFTER 0500 TO ATTEMPT TO DRAW AGAIN.
--- NOTE | 2019-12-15 04:29 | NUR ---
PT DEMANDING TO HAVE HER "INHALERS" DEPSITE THE FACT THAT SHE JUST HAD A DUO NEB. PT INSISTS THAT THIS IS "THE CRITICAL PART OF MY CONDITION. I GET THE MUCUS PLUGS STUCK AND I CAN'T BREATH! IT IS SCARY!" PT APPEARS ANXIOUS. RR30'S-SATS DOWN TO 80'S AT TIMES. BP 170'S/100'S. WILL CONTACT HOSPITALIST.
--- NOTE | 2019-12-15 04:39 | NUR ---
UPDATED TO PT ANXIETY, AIR HUNGER, CURRENT VS AND STATUS. ORDER GIVEN FOR 1 X DOSE OF ATIVAN 0.5 MG IVP X1-SEE EMAR.
[2019-12-15 05:30] LABS: BASOPHILS ABSOLUTE AUTO 0.07 K/mm3 (0.00-0.23); BASOPHILS PERCENT AUTO 1 % (0-2); EOSINOPHILS ABSOLUTE AUTO 0.07 K/mm3 (0.00-0.68); EOSINOPHILS PERCENT AUTO 1 % (0-6); Hematocrit 45.4 % (33.0-51.0); Hemoglobin 14.4 g/dL (11.5-16.0); IMMATURE GRAN ABSOLUTE AUTO 0.02 K/mm3 (0.00-0.10); IMMATURE GRAN PERCENT AUTO 0 % (0-1); LYMPHOCYTES ABSOLUTE AUTO 3.51 K/mm3 (0.84-5.20); LYMPHOCYTES PERCENT AUTO 43 % (21-46); MONOCYTES ABSOLUTE AUTO 0.67 K/mm3 (0.16-1.47); MONOCYTES PERCENT AUTO 8 % (4-13); Mean Corpuscular HGB 29.5 pg (26.0-34.0); Mean Corpuscular HGB Conc 31.7 g/dL (31.5-36.5); Mean Corpuscular Volume 93 fL (80-100); Mean Platelet Volume 8.5 fL (9.1-12.4); NEUTROPHILS PERCENT AUTO 48 % (41-73); Platelet Count 339 K/mm3 (150-400); RDW Coefficient Variation 13.4 % (11.7-14.2); RDW Standard Deviation 45.7 fL (35.1-46.3); Red Blood Cell Count 4.88 M/mm3 (3.80-5.20); White Blood Cell Count 8.24 K/mm3 (4.00-11.30)
--- NOTE | 2019-12-15 05:30 | NUR ---
LAB DRAWN. PT REQUESTED TO GET UP TO BEDSIDE COMMODE. PT APPEARS LESS ANXIOUS-RESP 20'S AND LESS EXERTIONAL DYSPNEA NOT. MAINTAINING SATS>90% ON 3 LITERS NASAL CANULA. HR 70'S SR AND BP 165/92.
[2019-12-15 06:06] LABS: Alanine Aminotransfer (ALT/SGP 14 U/L (12-78); Albumin, Blood 3.5 g/dL (3.4-5.0); Albumin/Globulin Ratio 1.1 (0.8-1.8); Alk Phos 47 U/L (50-136); Anion Gap 6 mmol/L (6-16); Aspartate Aminotrans (AST/SGOT 16 U/L (12-37); Bilirubin, Total 0.3 mg/dL (0.1-1.0); Blood Urea Nitrogen 7 mg/dL (8-24); Bun/Creatinine Ratio 14.8 (12.0-20.0); CO2, Blood 28 mmol/L (21-32); Calcium, Blood 8.4 mg/dL (8.5-10.1); Chloride, Blood 104 mmol/L (98-108); Creatinine, Blood 0.47 mg/dL (0.40-1.00); Globulin, Blood 3.1 g/dL (2.2-4.0); Glomerular Filtration Rate >60 (60-); Glucose, Blood 100 mg/dL (70-99); Magnesium, Blood 2.3 mg/dL (1.6-2.4); Phosphorus, Blood 3.8 mg/dL (2.5-4.9); Sodium, Blood 138 mmol/L (136-145); Total Protein, Blood 6.6 g/dL (6.4-8.2)
--- NOTE | 2019-12-15 07:14 | NUR ---
PT RESTING QUIETLY WHEN NOT DISTURBED. NO ACUTE DISTRESS NOTED. REPORT GIVEN TO PAM BOWERS.
--- NOTE | 2019-12-15 08:19 | NUR ---
RECEIVED VERBAL PERMISSION FROM PATIENT TO SPEAK TO HER DAUGHTER TURNER BY PHONE, OK TO GIVE UPDATE.
--- NOTE | 2019-12-15 15:00 | NUR ---
PT EXHIBITING TACHYPNEA AFTER MAKING SEVERAL TRIPS TO [facility]. IS STATING SHE IS SOB BUT O2 SAT IS > 92%. REQUESTING NEB TREATMENS AND "MY INHALERS." IS ANXIOUS AND C/O PAIN IN R RIBCAGE, WHICH IS NOT REPORDUCIBLE WITH PALPATION. SPOKE TO DR. MOLINA BY PHONE, REQUESTED PAIN MEDICATION, ANXIOLYTIC, AND SALINE NASAL SPRAY AFTER REPORTING THESE SXS. ORDERS RECEIVED.
--- NOTE | 2019-12-15 15:40 | NUR ---
PT TRANSFERRED TO MEDICAL FLOOR ROOM 361 VIA W/C WITH ALL BELONGINGS.
--- NOTE | 2019-12-15 18:48 | NUR ---
SHIFT SUMMARY PT WAS A TRANSFER TO ROOM 361 FROM ICU11 THIS AFTERNOON. PT HAS BEEN VERY ANXIOUS AND WANTING TO GO HOME. PT HAD THREATENED TO GO AMA. THIS RN TALKED WITH DR. MOLINA AND NOTIFIED HIM OF THIS. THIS RN TALKED WITH PT'S DAUGHTER, IVONNE AND SHE REPORTED SHE WOULD TALK WITH PT. THIS RN GOT FLONASE ORDERED PER PT REQUEST. NO COMPLAINTS OF PAIN AT THIS TIME. PT REMOVES OXYGEN CONTINUOUSLY AND THIS RN REMINDS PT TO LEAVE IN NOSE. ATIVAN GIVEN TO HELP RELAX PT. PT NOW LAYING IN BED WITH OXYGEN IN PLACE AND REPORTS FEELING LIKE SHE CAN BREATHE BETTER SINCE FLONASE WAS ADMINISTERED. NO ACUTE DISTRESS AT THIS TIME. CALL LIGHT IN REACH. REPORT GIVNE TO NOC RN.
--- NOTE | 2019-12-16 04:58 | NUR ---
LUNCHROOM WORKER SUMMARY PT AAOX3 WITH SOME INTERMITTENT CONFUSION/FORGETFULNESS. PT VERY ANXIOUS AT TIMES AND WORKS HERSELF UP OVER NOTHING. PT CONSTANTLY ASKING ABOUT HER HOME INHALERS EVEN THOSE RN AND RT HAVE EXPLAINED TO HER THAT SHE IS GETTING HER TREATMENTS IN NEB FORM. PT THREATENED TO LEAVE AMA SEVERAL TIMES BUT ULTIMATELY STAYED THROUGH THE NIGHT. PT STATES SHE WILL CALL HER PCP THIS MORNING TO FIND OUT IF SHE CAN LEAVE. WILL CONTINUE TO MONITOR.
--- NOTE | 2019-12-16 15:21 | NUR ---
Conversations with nursing and family: Pt is being discharged home today. She lives with a neice and a sister. Nejoy is able to help around the home; pt's sister has suffered a stroke and completely disabled. Pt's health is declining. Nurse requested palliative care consult to address symptoms and help with advanced care planning. Pt short of breath at rest, gets up to the C with assistance. Pt is experiencing severe anxiety and shortness of breath. Nurse reports that she was able to talk pt into one dose of Ativan for relief; it appears that it was effective when given. Pt has declined other doses for this. Spoke with daughter, Rubina. She states that pt "has good days and bad days." The last few weeks, she has been sicker and less able to do her normal activities. Rubina reports increased shortness of breath and pt complaining that she "just doesn't feel well." Sometimes, she is able to cook minimally for herself. She consistently is able to bathe herself without help and able to take herself to the bathroom consistently. She needs help with regular housework. Rubina lives in [place] and is at the home daily to assist the household. Rubina has a sister in [place] that she coordinates with and communicates about her mother with. Reviewed past admission in Oct of this year. Dr. Nugent had documented that he had a conversation with the pt regarding hospice and the trajectory of her disease. Rubina had no knowledge that this conversation had taken place and did not know that she was appropriate for hospice with her COPD diagnosis at this time. Reviewed hospice services benefits, philosophy, quality of life. Recommended having a conversation with the pt's PCP at their next appointment to review this with the pt present and family present. Rubina reports that she takes the pt to her appointments and will be accompanying her at her next visit. She reports that the pt usually does not experience anxiety at home related to her breathing. She wears oxygen at baseline. Reviewed hospice medications that help support air hunger and anxiety. Ativan and Roxanol are discussed at length and instructed to ask PCP about prescribing these at low doses if symptoms persist, even if she choses not to enroll in hospice services. Rubina verbalizes understanding and expresses gratitude in the phone call and information. Will remain available for any other needs. Pt high risk for readmission due to worsening disease process.
[2019-12-16] MEDS ORDERED: Duoneb 2.5-0.5 M3 ML INH (15:50)
[2019-12-16] MEDS ORDERED: DILT120 PO (15:53)
[2019-12-16] MEDS ORDERED: GUAI600T33 PO (15:54)
[2019-12-16] MEDS ORDERED: Flonase 0.05% N16 GM (15:54)
[2019-12-16] MEDS ORDERED: Prednisone10 MG (15:55)
[2019-12-16] MEDS ORDERED: CEFD300 PO (15:55)
--- NOTE | 2019-12-16 16:35 | NUR ---
BLOOD PRESSURE/MEDICATION PT WAS HYPERTENSIVE AND THIS RN ADMINSTERED IV HYDRALAZINE PER EMAR. PT REPORTS NOT FEELING WELL 30 MINUTES AFTER MEDICATION WAS ADMINISTERED. THIS RN TOOK PT'S BLOOD PRESSURE AND IT HAD DECREASED GREATLY. THIS RN EXPLAINED TO PT THAT THE DROP IN BLOOD PRESSURE MAY HAVE MADE HER FEEL DIFFERENT. THIS RN CALLED DR. MOLINA AND NOTIFIED HIM THAT PT WAS HYPERTENSIVE AND RECEIVED HYDRALAZINE WITH RESULTS BUT WAS NOT FEELING WELL AFTER. DR. MOLINA ORDERED FOR PT'S CARDIZEM TO BE CHANGED TO BID WITH PARAMETERS. SEE PHYSICIAN ORDERS. NEW MEDICATION ORDER WAS CALLED INTO PHARMACY REQUESTED. DR. MOLINA STILL WANTING PT TO BE DISCHARGED HOME. WILL CONTINUE TO MONITOR.
--- NOTE | 2019-12-16 18:02 | NUR ---
DISCHARGE PT DISCHARGED TO HOME. THIS RN EXPLAINED DISCHARGE INSTRUCTIONS TO TURNER GUTHRIE OVER THE PHONE. MEDICATIONS FAXED TO [facility] PER PT REQUEST. IV REMOVED WITHOUT DIFFICULTY. PT TRANSFERRED TO PRIVATE VEHICLE VIA WHEELCHAIR BY [employer] [employer] REFRIGERATION. BELONGINGS WITH PT.
== END 2019-12-16 17:55 | disposition home or self-care (01) | DRG 189 ==
LOC: ER 14:17 → ERHOLD 20:11 → ICUW 22:20 → MEDS 12-15 15:44
PROVIDERS: Emergency Medicine; Nurse Practitioner Acute Care; ADMIT Hospitalist
DX: J96.21 Acute and chronic respiratory failure with hypoxia (principal); J44.1 Chronic obstructive pulmonary disease with (acute) exacerbation; N39.0 Urinary tract infection, site not specified; I47.1 Supraventricular tachycardia; I10 Essential (primary) hypertension; B96.20 Unspecified Escherichia coli [E. coli] as the cause of diseases classified elsewhere; F17.210 Nicotine dependence, cigarettes, uncomplicated; Z99.81 Dependence on supplemental oxygen; Z86.73 Personal history of transient ischemic attack (TIA), and cerebral infarction without residual deficits
CPT/HCPCS: 0099U; 36415; 36416; 36600; 71045; 80053; 81001; 82803; 83605; 83735; 84100; 84145; 84484; 85025; 87040; 87077; 87086; 87186; 93005; 93010; 94640; 94760; 96361; 96365; 96375; 97161; 99285-25; J0153; J0360; J0696; J1650; J2060; J7030; J7120; J7512

== ENCOUNTER → 2021-04-07 | Outpatient (CLI) | payer MEDICARE ==
[~2021-04-07] MED LIST changes: +CEFD300 PO; +DILT120 PO; +Duoneb 2.5-0.5 M3 ML INH; +Flonase 0.05% N16 GM; +Prednisone10 MG
[2021-04-07 14:11] LABS: BASOPHILS ABSOLUTE AUTO 0.07 K/mm3 (0.00-0.23); BASOPHILS PERCENT AUTO 1 % (0-2); EOSINOPHILS ABSOLUTE AUTO 0.08 K/mm3 (0.00-0.68); EOSINOPHILS PERCENT AUTO 1 % (0-6); Hematocrit 41.9 % (33.0-51.0); Hemoglobin 14.7 g/dL (11.5-16.0); IMMATURE GRAN ABSOLUTE AUTO 0.04 K/mm3 (0.00-0.10); IMMATURE GRAN PERCENT AUTO 0 % (0-1); LYMPHOCYTES PERCENT AUTO 21 % (21-46); MONOCYTES ABSOLUTE AUTO 0.66 K/mm3 (0.16-1.47); MONOCYTES PERCENT AUTO 7 % (4-13); Mean Corpuscular HGB Conc 35.1 g/dL (31.5-36.5); Mean Corpuscular Volume 86 fL (80-100); Mean Platelet Volume 8.5 fL (9.1-12.4); NEUTROPHILS ABSOLUTE AUTO 6.68 K/mm3 (1.96-9.15); NEUTROPHILS PERCENT AUTO 70 % (41-73); Platelet Count 382 K/mm3 (150-400); RDW Coefficient Variation 13.2 % (11.7-14.2); RDW Standard Deviation 41.1 fL (35.1-46.3); White Blood Cell Count 9.53 K/mm3 (4.00-11.30)
[2021-04-07 14:33] LABS: Alanine Aminotransfer (ALT/SGP 10 U/L (12-78); Albumin, Blood 3.7 g/dL (3.4-5.0); Albumin/Globulin Ratio 1.2 (0.8-1.8); Alk Phos 65 U/L (40-126); Anion Gap 7 mmol/L (6-16); Aspartate Aminotrans (AST/SGOT 9 U/L (12-37); Bilirubin, Total 0.4 mg/dL (0.1-1.0); Blood Urea Nitrogen 13 mg/dL (8-24); Bun/Creatinine Ratio 27.1 (12.0-20.0); CO2, Blood 29 mmol/L (21-32); Calcium, Blood 8.5 mg/dL (8.5-10.1); Chloride, Blood 94 mmol/L (98-108); Creatinine, Blood 0.48 mg/dL (0.40-1.00); Globulin, Blood 3.2 g/dL (2.2-4.0); Glomerular Filtration Rate >60 (60-); Glucose, Blood 88 mg/dL (70-99); Potassium, Blood 3.4 mmol/L (3.5-5.5); Sodium, Blood 130 mmol/L (136-145); Thyroid Stimulating Hormone 1.351 uIU/mL (0.360-4.800); Total Protein, Blood 6.9 g/dL (6.4-8.2)
== END | disposition home or self-care (01) ==
LOC: LAB 14:06 → LAB SHORT 14:06
PROVIDERS: Physician Assistant
DX: N39.0 Urinary tract infection, site not specified (principal); D50.9 Iron deficiency anemia, unspecified; R53.83 Other fatigue
CPT/HCPCS: 80053; 82728; 83540; 83550; 84443; 85025; 87077; 87086; 87186

== ENCOUNTER 2021-06-09 10:29 | Emergency (ER) | payer MEDICARE ==
[~2021-06-09] VITALS: Ht 167.6 cm; Wt 36.3 kg
[2021-06-09] MEDS ORDERED: LORAZEPAM0.5 MG PO (10:52)
[2021-06-09 11:21] LABS: BASOPHILS ABSOLUTE AUTO 0.08 K/mm3 (0.00-0.23); BASOPHILS PERCENT AUTO 1 % (0-2); EOSINOPHILS ABSOLUTE AUTO 0.07 K/mm3 (0.00-0.68); EOSINOPHILS PERCENT AUTO 1 % (0-6); Hematocrit 45.7 % (33.0-51.0); Hemoglobin 15.1 g/dL (11.5-16.0); IMMATURE GRAN ABSOLUTE AUTO 0.02 K/mm3 (0.00-0.10); IMMATURE GRAN PERCENT AUTO 0 % (0-1); LYMPHOCYTES ABSOLUTE AUTO 1.93 K/mm3 (0.84-5.20); LYMPHOCYTES PERCENT AUTO 26 % (21-46); MONOCYTES ABSOLUTE AUTO 0.47 K/mm3 (0.16-1.47); MONOCYTES PERCENT AUTO 6 % (4-13); Mean Corpuscular Volume 88 fL (80-100); Mean Platelet Volume 8.2 fL (9.1-12.4); NEUTROPHILS ABSOLUTE AUTO 4.75 K/mm3 (1.96-9.15); NEUTROPHILS PERCENT AUTO 65 % (41-73); Platelet Count 434 K/mm3 (150-400); RDW Coefficient Variation 14.1 % (11.7-14.2); RDW Standard Deviation 45.3 fL (35.1-46.3); White Blood Cell Count 7.32 K/mm3 (4.00-11.30)
[2021-06-09 11:37] LABS: Alanine Aminotransfer (ALT/SGP 17 U/L (12-78); Albumin, Blood 3.8 g/dL (3.4-5.0); Alk Phos 72 U/L (50-136); Anion Gap 4 mmol/L (6-16); Aspartate Aminotrans (AST/SGOT 18 U/L (12-37); Bilirubin, Total 0.4 mg/dL (0.1-1.0); Blood Urea Nitrogen 8 mg/dL (8-24); Bun/Creatinine Ratio 18.6 (12.0-20.0); CO2, Blood 31 mmol/L (21-32); Calcium, Blood 8.9 mg/dL (8.5-10.1); Chloride, Blood 98 mmol/L (98-108); Creatinine, Blood 0.43 mg/dL (0.40-1.00); Globulin, Blood 3.8 g/dL (2.2-4.0); Glomerular Filtration Rate >60 (60-); Glucose, Blood 100 mg/dL (70-99); Potassium, Blood 3.5 mmol/L (3.5-5.5); Sodium, Blood 133 mmol/L (136-145); Total Protein, Blood 7.6 g/dL (6.4-8.2)
[2021-06-09 11:52] LABS: Source, Urine Clean Catch
[2021-06-09 12:04] LABS: Appearance, Urine Hazy (Clear); Bilirubin, Urine Neg (Neg); Blood, Urine 3+ (Neg); Color, Urine Yellow (P-Yellow); Glucose Qualitative, Urine Neg (Neg); Ketones, Urine Neg (Neg); Leukocyte Esterase, Urine Neg (Neg); Nitrite, Urine Neg (Neg); Protein, Urine 1+ (Neg); Specific Gravity, Urine 1.015 (1.003-1.022); Urobilinogen, Urine NORM (Normal)
[2021-06-09 12:17] LABS: White Blood Cells, Urine 0-2 /hpf (0-5)
[2021-06-09 12:18] LABS: Amorphous Mod (0-Heavy); Bacteria Rare /hpf; Mucus Light (0-Heavy); Squamous Epithelial Cells Few /hpf (Few)
[2021-06-09] MEDS ORDERED: PRED20 PO (12:33)
[2021-06-09] MEDS ORDERED: ALBU90OI INH (12:33)
== END 2021-06-09 12:50 | disposition home or self-care (01) ==
LOC: ER 10:29
PROVIDERS: Emergency Medicine
DX: J44.1 Chronic obstructive pulmonary disease with (acute) exacerbation (principal); Z88.1 Allergy status to other antibiotic agents; Z88.0 Allergy status to penicillin; Z88.5 Allergy status to narcotic agent; Z88.8 Allergy status to other drugs, medicaments and biological substances; Z79.899 Other long term (current) drug therapy; Z79.82 Long term (current) use of aspirin
CPT/HCPCS: 36415; 71045; 80053; 81001; 85025; 93005; 93010; 94640; 96374; 99284-25; J2930

== ENCOUNTER 2021-07-01 12:55 | Inpatient (IN) | payer MEDICARE ==
[~2021-07-01] VITALS: Ht 167.6 cm; Wt 38.2 kg
[~2021-07-01 12:55] MED LIST changes: +LORAZEPAM0.5 MG PO
[2021-07-01] MEDS ORDERED: DILT120 PO (13:33)
[2021-07-01 13:51] LABS: BASOPHILS ABSOLUTE AUTO 0.04 K/mm3 (0.00-0.23); BASOPHILS PERCENT AUTO 0 % (0-2); EOSINOPHILS ABSOLUTE AUTO 0.03 K/mm3 (0.00-0.68); EOSINOPHILS PERCENT AUTO 0 % (0-6); Hematocrit 39.3 % (33.0-51.0); IMMATURE GRAN ABSOLUTE AUTO 0.09 K/mm3 (0.00-0.10); IMMATURE GRAN PERCENT AUTO 1 % (0-1); LYMPHOCYTES ABSOLUTE AUTO 2.13 K/mm3 (0.84-5.20); LYMPHOCYTES PERCENT AUTO 12 % (21-46); MONOCYTES ABSOLUTE AUTO 1.28 K/mm3 (0.16-1.47); MONOCYTES PERCENT AUTO 7 % (4-13); Mean Corpuscular HGB Conc 33.1 g/dL (31.5-36.5); Mean Corpuscular Volume 88 fL (80-100); Mean Platelet Volume 8.9 fL (9.1-12.4); NEUTROPHILS PERCENT AUTO 79 % (41-73); Platelet Count 359 K/mm3 (150-400); RDW Standard Deviation 45.5 fL (35.1-46.3); Red Blood Cell Count 4.48 M/mm3 (3.80-5.20); White Blood Cell Count 17.37 K/mm3 (4.00-11.30)
[2021-07-01 13:59] LABS: Alanine Aminotransfer (ALT/SGP 11 U/L (12-78); Albumin, Blood 2.2 g/dL (3.4-5.0); Albumin/Globulin Ratio 0.5 (0.8-1.8); Alk Phos 83 U/L (50-136); Anion Gap 7 mmol/L (6-16); Aspartate Aminotrans (AST/SGOT 11 U/L (12-37); Bilirubin, Total 0.6 mg/dL (0.1-1.0); Blood Urea Nitrogen 20 mg/dL (8-24); Bun/Creatinine Ratio 53.8 (12.0-20.0); CO2, Blood 28 mmol/L (21-32); Calcium, Blood 8.4 mg/dL (8.5-10.1); Chloride, Blood 99 mmol/L (98-108); Creatinine, Blood 0.37 mg/dL (0.40-1.00); Globulin, Blood 4.3 g/dL (2.2-4.0); Glomerular Filtration Rate >60 (60-); Glucose, Blood 164 mg/dL (70-99); Potassium, Blood 3.5 mmol/L (3.5-5.5); Sodium, Blood 134 mmol/L (136-145); Total Protein, Blood 6.5 g/dL (6.4-8.2); Troponin I <0.015 ng/mL (0.000-0.040)
[2021-07-01 15:30] LABS: SARS-Cov-2 (COVID-19) PCR, MMC NEGATIVE (NEGATIVE)
--- NOTE | 2021-07-01 18:15 | NUR ---
SHIFT SUMMARY PATIENT ADMITTED FROM ER AT 1715. PATIENT DENIES PAIN AND NAUSEA. PATIENT REPORTS SHORTNESS OF BREATH. PATIENT IS ON 2L OF O2 VIA N/C. RT CALLED FOR BREATHING TREATMENT. PATIENT IS A 1 PERSON ASSIST TO THE BSC. PATIENT DOES STATE SHE HAS OCCASSIONAL EPISODES OF INCONTINENCE. PATIENT CAME UP WITH DAUGHTER, TURNER. PATIENT IS EATING DINNER. PATIENT IS PLEASANT AND COOPERATIVE WITH CARE.
[2021-07-02 05:12] LABS: Hematocrit 38.8 % (33.0-51.0); Hemoglobin 12.7 g/dL (11.5-16.0); Mean Corpuscular HGB Conc 32.7 g/dL (31.5-36.5); Mean Corpuscular Volume 89 fL (80-100); Mean Platelet Volume 8.6 fL (9.1-12.4); Platelet Count 405 K/mm3 (150-400); RDW Coefficient Variation 14.2 % (11.7-14.2); RDW Standard Deviation 46.3 fL (35.1-46.3); Red Blood Cell Count 4.38 M/mm3 (3.80-5.20); White Blood Cell Count 9.13 K/mm3 (4.00-11.30)
[2021-07-02 05:52] LABS: Anion Gap 5 mmol/L (6-16); Blood Urea Nitrogen 23 mg/dL (8-24); Bun/Creatinine Ratio 64.4 (12.0-20.0); CO2, Blood 31 mmol/L (21-32); Calcium, Blood 8.9 mg/dL (8.5-10.1); Chloride, Blood 96 mmol/L (98-108); Creatinine, Blood 0.36 mg/dL (0.40-1.00); Glomerular Filtration Rate >60 (60-); Glucose, Blood 215 mg/dL (70-99); Sodium, Blood 132 mmol/L (136-145)
--- NOTE | 2021-07-02 16:15 | NUR ---
SHIFT SUMMARY PATIENT IS ALERT AND ORIENTED X3, BECOMES FORGETFUL AT TIMES. PATIENT IS ON 2 LITERS OF OXYGEN VIA NASAL CANNULA SATTING > 90% PATIENT HAS GOTTEN UP TO THE BEDSIDE COMMODE TWICE THIS SHIFT. PATIENT IS CONTINENT/INCONTINENT. PATIENT NEEDS REMINDERS TO USE CALL BRENNER INSTEAD OF YELLING OUT. PATIENT HAS WORKED WITH PHYSICAL THERAPY THIS SHIFT SOMEWHAT. THE PATIENT COMPLAINS ABOUT THE FOOD HERE. THE PATIENT HAS RECIVED ONE DOSE OF ATIVAN THIS SHIFT FOR ANXIETY. SPUTUM CULTURE SENT OFF TO THE LAB THIS SHIFT. THIS NURSE WILL CONTINUE TO CARE FOR THE PATIENT UNTIL ONCOMING SHIFT REPORT IS MADE. NO ACUTE CHANGES THIS SHIFT. VITAL SIGNS STABLE.
--- NOTE | 2021-07-02 22:37 | NUR ---
AWAKE AT INTERVALS. VOICED DESIRES TO "GO HOME". ENCOURAGED TO SPEAK WITH MD IN THE AM. BED ALARM ON. WILL MONITOR. CALL LIGHT IN REACH. HOB REMAINS ELAVATED ABOUT 40 DEGREES.
--- NOTE | 2021-07-03 03:08 | NUR ---
NURSE PRACTITIONER MANAGER SUMMARY HAS BEEN RESTING QUIETLY AT INTERVALS SINCE HS. VOICED DESIRES TO GO HOME EARLIER AND WAS ENCOURAGED TO SPEAK WITH THE MD IN THE AM RE SUCH. 02 PER NC. O2 SATS IN THE 90'S. CALL LIGHT IN REACH
--- NOTE | 2021-07-03 04:10 | NUR ---
PT AWAKE, DEMANDED NURSE CALL HER "DAUGHTER", PT WAS HAVING "MENTAL PROBLEMS" AND SAID THE NURSE COULD NOT HELP. CALL PLACED TO PH NUMBER OF DAUGHTER ON WHITE BOARD. PT PROCEEDED TO SPEAK WITH PERSON ON THE OTHER END OF THE LINE.O2 PER NC. CALL LIGHT IN REACH
--- NOTE | 2021-07-03 04:46 | NUR ---
DAUGHTER (WHO PT HAD SPOKEN TO EARLIER) CALLED DESK/SPOKE WITH ME RE PT ACTING UNUSUAL. DISCUSSED MEDS WITH ME, STATED SHE TOOK LORAZEPAM ON A ROUTINE BASIS THROUGHOUT THE DAY, THAT IT SHOULDNT BE A PRN MED. THAT SHE FELT HER MOTHER WAS "WITHDRAWING" FROM THE MED. ASKED THAT MD REVIEW AND PUT THE MED ON A ROUTINE BASIS THROUGHOUT THE DAY. I WILL PASS THIS ON TO AM NURSE FOR FOLLOW THROUGH. ATIVAN GIVEN TO PT. WILL MONITOR. CALL LIGHT IN REACH
[2021-07-03 05:41] LABS: Anion Gap 6 mmol/L (6-16); Blood Urea Nitrogen 22 mg/dL (8-24); Bun/Creatinine Ratio 71.4 (12.0-20.0); CO2, Blood 25 mmol/L (21-32); Calcium, Blood 8.9 mg/dL (8.5-10.1); Chloride, Blood 100 mmol/L (98-108); Creatinine, Blood 0.31 mg/dL (0.40-1.00); Glomerular Filtration Rate >60 (60-); Glucose, Blood 150 mg/dL (70-99); Potassium, Blood 4.7 mmol/L (3.5-5.5); Sodium, Blood 131 mmol/L (136-145)
--- NOTE | 2021-07-03 05:44 | NUR ---
RESTING QUIETLY. CALL LIGHT IN REACH
[2021-07-03 08:10] LABS: BASOPHILS ABSOLUTE AUTO 0.03 K/mm3 (0.00-0.23); BASOPHILS PERCENT AUTO 0 % (0-2); EOSINOPHILS PERCENT AUTO 0 % (0-6); Hematocrit 38.3 % (33.0-51.0); IMMATURE GRAN ABSOLUTE AUTO 0.13 K/mm3 (0.00-0.10); IMMATURE GRAN PERCENT AUTO 1 % (0-1); LYMPHOCYTES ABSOLUTE AUTO 1.38 K/mm3 (0.84-5.20); LYMPHOCYTES PERCENT AUTO 9 % (21-46); MONOCYTES PERCENT AUTO 6 % (4-13); Mean Corpuscular HGB 29.3 pg (26.0-34.0); Mean Corpuscular HGB Conc 33.9 g/dL (31.5-36.5); Mean Corpuscular Volume 86 fL (80-100); Mean Platelet Volume 8.4 fL (9.1-12.4); NEUTROPHILS ABSOLUTE AUTO 12.74 K/mm3 (1.96-9.15); NEUTROPHILS PERCENT AUTO 84 % (41-73); Platelet Count 470 K/mm3 (150-400); RDW Standard Deviation 44.4 fL (35.1-46.3); Red Blood Cell Count 4.44 M/mm3 (3.80-5.20); White Blood Cell Count 15.18 K/mm3 (4.00-11.30)
[2021-07-03] MEDS ORDERED: CEFD300 PO (12:18)
[2021-07-03] MEDS ORDERED: LACT PO (12:19)
[2021-07-03] MEDS ORDERED: PRED20 PO (12:20)
--- NOTE | 2021-07-03 13:23 | NUR ---
DISCHARGE NOTE: PT IS ALERT AND ANXIOUS. ORIENTED X2-3, FORGETFUL AND HAS REPEATED REQUESTS. NO TELE. SCHEDULED NEB TX GIVEN BY RT. IV ABX CONTINUED PER ORDERS. VSS ON 2L OXYGEN, WHICH IS PT BASELINE. DAUGHTER HOLA WAS UPDATED AND WILL BE COMING TO PICK PT UP WITH HOME OXYGEN. HOLA SAID PT PHARMACY IS [facility].
== END 2021-07-03 14:45 | disposition home health service (06) | DRG 871 ==
LOC: ER 12:55 → ERHOLD 16:01 → MEDS 17:09
PROVIDERS: Family Medicine; Physician Assistant; ADMIT Internal Medicine
DX: A41.9 Sepsis, unspecified organism (principal); J18.9 Pneumonia, unspecified organism; J96.21 Acute and chronic respiratory failure with hypoxia; E43 Unspecified severe protein-calorie malnutrition; J44.0 Chronic obstructive pulmonary disease with (acute) lower respiratory infection; Z66 Do not resuscitate; J44.1 Chronic obstructive pulmonary disease with (acute) exacerbation; R64 Cachexia; Z68.1 Body mass index [BMI] 19.9 or less, adult; E87.1 Hypo-osmolality and hyponatremia; Z20.822 Contact with and (suspected) exposure to COVID-19; L89.151 Pressure ulcer of sacral region, stage 1; E78.5 Hyperlipidemia, unspecified; F41.9 Anxiety disorder, unspecified; F32.A Depression, unspecified; I10 Essential (primary) hypertension; Z28.21 Immunization not carried out because of patient refusal; H10.9 Unspecified conjunctivitis; Z88.1 Allergy status to other antibiotic agents; Z88.5 Allergy status to narcotic agent; Z88.8 Allergy status to other drugs, medicaments and biological substances; Z79.899 Other long term (current) drug therapy; Z86.73 Personal history of transient ischemic attack (TIA), and cerebral infarction without residual deficits; Z90.710 Acquired absence of both cervix and uterus; Z90.49 Acquired absence of other specified parts of digestive tract
CPT/HCPCS: 36415; 71045; 80048; 80053; 83605; 83880; 84145; 84484; 85025; 85027; 93005; 93010; 94640; 94760; 94762; 96374; 96375; 97162; 97166; 97530; 97535; 99285-25; A9270; J0456; J0696; J1650; J2920; J7050; J7512; U0004

== ENCOUNTER → 2021-07-17 | Outpatient (CLI) | payer MEDICARE ==
[~2021-07-17] MED LIST changes: +LACT PO
== END | disposition home or self-care (01) ==
LOC: LAB 18:06 → LAB SHORT 18:06
DX: R31.29 Other microscopic hematuria (principal)
CPT/HCPCS: 87086

== ENCOUNTER 2021-07-23 13:54 | Emergency (ER) | payer MEDICARE ==
[~2021-07-23] VITALS: Ht 152.4 cm; Wt 45.4 kg
== END 2021-07-23 14:49 | disposition left against medical advice (07) ==
LOC: ER 13:54
DX: Z53.21 Procedure and treatment not carried out due to patient leaving prior to being seen by health care provider (principal)

== ENCOUNTER 2021-11-13 15:59 | Emergency (ER) | payer MEDICARE ==
[~2021-11-13] VITALS: Ht 167.6 cm; Wt 43.1 kg
[2021-11-13 16:36] LABS: BASOPHILS ABSOLUTE AUTO 0.08 K/mm3 (0.00-0.23); BASOPHILS PERCENT AUTO 1 % (0-2); EOSINOPHILS ABSOLUTE AUTO 0.15 K/mm3 (0.00-0.68); EOSINOPHILS PERCENT AUTO 2 % (0-6); Hematocrit 43.2 % (33.0-51.0); Hemoglobin 14.2 g/dL (11.5-16.0); IMMATURE GRAN ABSOLUTE AUTO 0.01 K/mm3 (0.00-0.10); IMMATURE GRAN PERCENT AUTO 0 % (0-1); LYMPHOCYTES ABSOLUTE AUTO 2.88 K/mm3 (0.84-5.20); LYMPHOCYTES PERCENT AUTO 30 % (21-46); MONOCYTES ABSOLUTE AUTO 0.87 K/mm3 (0.16-1.47); MONOCYTES PERCENT AUTO 9 % (4-13); Mean Corpuscular HGB 29.2 pg (26.0-34.0); Mean Corpuscular HGB Conc 32.9 g/dL (31.5-36.5); Mean Corpuscular Volume 89 fL (80-100); Mean Platelet Volume 8.4 fL (9.1-12.4); NEUTROPHILS ABSOLUTE AUTO 5.62 K/mm3 (1.96-9.15); NEUTROPHILS PERCENT AUTO 58 % (41-73); Platelet Count 323 K/mm3 (150-400); RDW Coefficient Variation 13.9 % (11.7-14.2); RDW Standard Deviation 44.9 fL (35.1-46.3); Red Blood Cell Count 4.87 M/mm3 (3.80-5.20); White Blood Cell Count 9.61 K/mm3 (4.00-11.30)
[2021-11-13 17:04] LABS: Alanine Aminotransfer (ALT/SGP 16 U/L (12-78); Albumin, Blood 3.6 g/dL (3.4-5.0); Albumin/Globulin Ratio 1.2 (0.8-1.8); Alk Phos 57 U/L (50-136); Anion Gap 6 mmol/L (6-16); Aspartate Aminotrans (AST/SGOT 9 U/L (12-37); Bilirubin, Total 0.3 mg/dL (0.1-1.0); Blood Urea Nitrogen 18 mg/dL (8-24); Bun/Creatinine Ratio 32.5 (12.0-20.0); CO2, Blood 28 mmol/L (21-32); Calcium, Blood 8.6 mg/dL (8.5-10.1); Chloride, Blood 102 mmol/L (98-108); Creatinine, Blood 0.55 mg/dL (0.40-1.00); Globulin, Blood 3.1 g/dL (2.2-4.0); Glomerular Filtration Rate >60 (60-); Glucose, Blood 92 mg/dL (70-99); Potassium, Blood 3.8 mmol/L (3.5-5.5); Sodium, Blood 136 mmol/L (136-145); Total Protein, Blood 6.7 g/dL (6.4-8.2)
[2021-11-13] MEDS ORDERED: Zithromax250 MG PO (19:05)
[2021-11-13] MEDS ORDERED: Prednisone20 MG PO (19:05)
[2021-11-13 19:20] LABS: Influenza A, PCR NEGATIVE (NEGATIVE); Influenza B, PCR NEGATIVE (NEGATIVE); Resp Syncytial Virus, PCR NEGATIVE (NEGATIVE); SARS-Cov-2 (COVID-19) PCR, MMC NEGATIVE (NEGATIVE)
[2021-11-18] MEDS ORDERED: LORA.5 PO (15:05)
[2021-12-01] MEDS ORDERED: KETO10 PO (14:50)
== END 2021-11-13 19:19 | disposition home or self-care (01) ==
LOC: ER 15:59
PROVIDERS: Physician Assistant
DX: J44.1 Chronic obstructive pulmonary disease with (acute) exacerbation (principal); E78.5 Hyperlipidemia, unspecified; Z86.73 Personal history of transient ischemic attack (TIA), and cerebral infarction without residual deficits; F17.210 Nicotine dependence, cigarettes, uncomplicated; Z20.822 Contact with and (suspected) exposure to COVID-19; Z79.899 Other long term (current) drug therapy
CPT/HCPCS: 0241U; 36415; 71046; 80053; 84484; 85025; 93005; 93010; 99285-25; A9270; J7512

== ENCOUNTER 2021-12-15 09:02 | Inpatient (IN) | payer MEDICARE ==
[~2021-12-15] VITALS: Ht 165.1 cm; Wt 46.0 kg
[~2021-12-15 09:02] MED LIST changes: +KETO10 PO
[2021-12-15 09:26] LABS: BASOPHILS ABSOLUTE AUTO 0.04 K/mm3 (0.00-0.23); BASOPHILS PERCENT AUTO 0 % (0-2); EOSINOPHILS ABSOLUTE AUTO 0.04 K/mm3 (0.00-0.68); EOSINOPHILS PERCENT AUTO 0 % (0-6); Hematocrit 40.6 % (33.0-51.0); Hemoglobin 13.9 g/dL (11.5-16.0); IMMATURE GRAN ABSOLUTE AUTO 0.04 K/mm3 (0.00-0.10); IMMATURE GRAN PERCENT AUTO 0 % (0-1); LYMPHOCYTES ABSOLUTE AUTO 2.43 K/mm3 (0.84-5.20); LYMPHOCYTES PERCENT AUTO 21 % (21-46); MONOCYTES ABSOLUTE AUTO 0.86 K/mm3 (0.16-1.47); MONOCYTES PERCENT AUTO 7 % (4-13); Mean Corpuscular HGB 29.1 pg (26.0-34.0); Mean Corpuscular HGB Conc 34.2 g/dL (31.5-36.5); Mean Corpuscular Volume 85 fL (80-100); Mean Platelet Volume 8.2 fL (9.1-12.4); NEUTROPHILS ABSOLUTE AUTO 8.42 K/mm3 (1.96-9.15); NEUTROPHILS PERCENT AUTO 71 % (41-73); Platelet Count 491 K/mm3 (150-400); RDW Coefficient Variation 13.7 % (11.7-14.2); RDW Standard Deviation 42.8 fL (35.1-46.3); Red Blood Cell Count 4.77 M/mm3 (3.80-5.20); White Blood Cell Count 11.83 K/mm3 (4.00-11.30)
[2021-12-15 09:47] LABS: Alanine Aminotransfer (ALT/SGP 15 U/L (12-78); Albumin, Blood 3.4 g/dL (3.4-5.0); Albumin/Globulin Ratio 0.9 (0.8-1.8); Alk Phos 73 U/L (50-136); Anion Gap 4 mmol/L (6-16); Aspartate Aminotrans (AST/SGOT 31 U/L (12-37); Bilirubin, Total 0.6 mg/dL (0.1-1.0); Blood Urea Nitrogen 14 mg/dL (8-24); CO2, Blood 30 mmol/L (21-32); Calcium, Blood 8.7 mg/dL (8.5-10.1); Chloride, Blood 84 mmol/L (98-108); Creatinine, Blood 0.33 mg/dL (0.40-1.00); Globulin, Blood 3.6 g/dL (2.2-4.0); Glomerular Filtration Rate >60 (60-); Glucose, Blood 107 mg/dL (70-99); Potassium, Blood 4.9 mmol/L (3.5-5.5); Sodium, Blood 118 mmol/L (136-145)
[2021-12-15 14:13] LABS: Anion Gap 9 mmol/L (6-16); Blood Urea Nitrogen 13 mg/dL (8-24); Bun/Creatinine Ratio 29.7 (12.0-20.0); CO2, Blood 30 mmol/L (21-32); Calcium, Blood 8.7 mg/dL (8.5-10.1); Chloride, Blood 84 mmol/L (98-108); Creatinine, Blood 0.44 mg/dL (0.40-1.00); Glomerular Filtration Rate >60 (60-); Glucose, Blood 207 mg/dL (70-99); Potassium, Blood 4.4 mmol/L (3.5-5.5); Sodium, Blood 123 mmol/L (136-145)
[2021-12-15 15:48] LABS: Anion Gap 7 mmol/L (6-16); Blood Urea Nitrogen 15 mg/dL (8-24); Bun/Creatinine Ratio 30.5 (12.0-20.0); CO2, Blood 30 mmol/L (21-32); Calcium, Blood 8.4 mg/dL (8.5-10.1); Chloride, Blood 87 mmol/L (98-108); Creatinine, Blood 0.49 mg/dL (0.40-1.00); Glomerular Filtration Rate >60 (60-); Glucose, Blood 157 mg/dL (70-99); Potassium, Blood 4.6 mmol/L (3.5-5.5); Sodium, Blood 124 mmol/L (136-145)
--- NOTE | 2021-12-15 16:32 | NUR ---
NURSE NOTES BROUGHT TO THIS RN'S ATTNETION THAT PATIENT HAS PERSONAL HOME MEDICATION IN PURSE. REQUESTED TO LOCK PATIENT'S PERSONAL MEDICATION UP. PATIENT UNCOOPERATIVE WITH GIVING MEDICATIONS TO STAFF TO BE LOCKED UP AT FIRST. PATIENT EVENTUALLY VERBALLY AGREED. IN PRESENCE OF PATIENT, STAFF RETRIEVED MEDICATIONS, CIGARETTES, AND LIGHTERS AND LOCKED THEM UP IN PATIENTS MEDICATION DRAWER AND A NOTE WITH ALL ITEMS IN LOCKED DRAWER GIVEN TO PATIENT. FAMILY INFORMED WHERE MEDICATIONS ARE AND PLANS TO TAKE THEM HOME WITH HER WHEN SHE LEAVES.
[2021-12-15 18:00] LABS: Influenza A, PCR NEGATIVE (NEGATIVE); Influenza B, PCR NEGATIVE (NEGATIVE); Resp Syncytial Virus, PCR NEGATIVE (NEGATIVE); SARS-Cov-2 (COVID-19) PCR, MMC NEGATIVE (NEGATIVE)
--- NOTE | 2021-12-15 19:06 | NUR ---
SHIFT SUMMARY PATIENT ADMITTED FROM ER FOR HYPONATREMIA, SOB FOR PAST 2 WEEKS. PATIENT A&O 2-3, CONFUSED AND FORGETFUL. 1PA TO BSC,INCONT AT TIMES, ATTENDS IN PLACE. ON TELE SR 60S, EDEMA NOTED TO BILATERAL FEET. PRESSURE SORE NOTED ON COCCXY AND RIGHT BUTTOCK, AND RASH TO GROIN. HXOF COPD AND USES O2 PRN AT HOME. CURRENTLY ON 3LNC, RECEIVING BREATHING TX FROM RT. CONTINUALLY REMINDING PATIENT TO KEEP NC ON. IV FLUIDS RUNNING. REPORT GIVEN TO ONCOMING RN.
[2021-12-15 21:28] LABS: Anion Gap 5 mmol/L (6-16); Blood Urea Nitrogen 15 mg/dL (8-24); Bun/Creatinine Ratio 37.5 (12.0-20.0); CO2, Blood 30 mmol/L (21-32); Calcium, Blood 8.3 mg/dL (8.5-10.1); Chloride, Blood 91 mmol/L (98-108); Glomerular Filtration Rate >60 (60-); Glucose, Blood 194 mg/dL (70-99); Potassium, Blood 4.6 mmol/L (3.5-5.5); Sodium, Blood 126 mmol/L (136-145)
[2021-12-16 04:49] LABS: BASOPHILS PERCENT AUTO 0 % (0-2); EOSINOPHILS PERCENT AUTO 0 % (0-6); Hematocrit 37.7 % (33.0-51.0); Hemoglobin 12.6 g/dL (11.5-16.0); IMMATURE GRAN ABSOLUTE AUTO 0.05 K/mm3 (0.00-0.10); IMMATURE GRAN PERCENT AUTO 1 % (0-1); LYMPHOCYTES ABSOLUTE AUTO 0.81 K/mm3 (0.84-5.20); LYMPHOCYTES PERCENT AUTO 12 % (21-46); MONOCYTES ABSOLUTE AUTO 0.16 K/mm3 (0.16-1.47); MONOCYTES PERCENT AUTO 2 % (4-13); Mean Corpuscular HGB Conc 33.4 g/dL (31.5-36.5); Mean Corpuscular Volume 87 fL (80-100); Mean Platelet Volume 8.3 fL (9.1-12.4); NEUTROPHILS ABSOLUTE AUTO 5.89 K/mm3 (1.96-9.15); NEUTROPHILS PERCENT AUTO 85 % (41-73); Platelet Count 432 K/mm3 (150-400); RDW Coefficient Variation 13.9 % (11.7-14.2); RDW Standard Deviation 44.4 fL (35.1-46.3); Red Blood Cell Count 4.34 M/mm3 (3.80-5.20); White Blood Cell Count 6.91 K/mm3 (4.00-11.30)
[2021-12-16 05:14] LABS: Anion Gap 6 mmol/L (6-16); Blood Urea Nitrogen 13 mg/dL (8-24); Bun/Creatinine Ratio 31.1 (12.0-20.0); CO2, Blood 30 mmol/L (21-32); Calcium, Blood 8.5 mg/dL (8.5-10.1); Chloride, Blood 91 mmol/L (98-108); Creatinine, Blood 0.42 mg/dL (0.40-1.00); Glomerular Filtration Rate >60 (60-); Glucose, Blood 184 mg/dL (70-99); Phosphorus, Blood 3.6 mg/dL (2.5-4.9); Potassium, Blood 4.5 mmol/L (3.5-5.5); Sodium, Blood 127 mmol/L (136-145)
--- NOTE | 2021-12-16 05:58 | NUR ---
PHYSICIAN COMMUNICATION CONTACTED DR CALABRESE TO NOTIFY HIM THAT THE PATIENT IS REPORTING ANXIETY AND THAT SHE TYPICALLY TAKES 0.5-1 MG PO ATIVAN THREE TIMES A DAY NEEDED. DR ARTEAGA SAID TO ORDER THE HOME DOSE OF ATIVAN.
--- NOTE | 2021-12-16 06:07 | NUR ---
SHIFT SUMMARY PATIENT ALERT AND ORIENTED X3. SLEPT WELL OVERNIGHT. NO ACUTE ISSUES NOTED. BED IN LOWEST POSITION WITH WHEELS LOCKED AND ALARM ON. CALL LIGHT WITHIN REACH. REPORT GIVEN TO ONCOMING RN.
[2021-12-16 14:30] LABS: Anion Gap 4 mmol/L (6-16); Blood Urea Nitrogen 17 mg/dL (8-24); Bun/Creatinine Ratio 45.7 (12.0-20.0); CO2, Blood 29 mmol/L (21-32); Calcium, Blood 8.7 mg/dL (8.5-10.1); Chloride, Blood 97 mmol/L (98-108); Creatinine, Blood 0.37 mg/dL (0.40-1.00); Glomerular Filtration Rate >60 (60-); Glucose, Blood 122 mg/dL (70-99); Potassium, Blood 4.5 mmol/L (3.5-5.5); Sodium, Blood 130 mmol/L (136-145)
--- NOTE | 2021-12-17 03:25 | NUR ---
INSURANCE EXAMINER SUMMARY AWAKE AT INTERVALS, CALLING OUT FOR ASSISTANCE, THEN SEEMED TO RAMBLE WITH VOICED COMPLAINTS WHEN STAFF IN ROOM. MED TELE SR. O2 PER NC AT 3L/MIN. VOICED NEEDS FOR BREATHING TREATMENTS WHICH WERE ADDRESED BY RT - SEE MAR FOR DETAILS. SOME DEMANDS FOR MEDS SHE HAD AT HOME, VOICED FRUSTRATIONS WHEN NOT ALLOWED TO KEEP AT BEDSIDE. CURRENTLY RESTING QUIETLY. ASYMPTOMATIC. CALL LIGHT IN REACH
[2021-12-17 05:01] LABS: BASOPHILS ABSOLUTE AUTO 0.02 K/mm3 (0.00-0.23); BASOPHILS PERCENT AUTO 0 % (0-2); EOSINOPHILS ABSOLUTE AUTO 0.01 K/mm3 (0.00-0.68); EOSINOPHILS PERCENT AUTO 0 % (0-6); Hematocrit 38.6 % (33.0-51.0); Hemoglobin 12.4 g/dL (11.5-16.0); IMMATURE GRAN ABSOLUTE AUTO 0.06 K/mm3 (0.00-0.10); IMMATURE GRAN PERCENT AUTO 1 % (0-1); LYMPHOCYTES ABSOLUTE AUTO 1.89 K/mm3 (0.84-5.20); LYMPHOCYTES PERCENT AUTO 14 % (21-46); MONOCYTES ABSOLUTE AUTO 1.12 K/mm3 (0.16-1.47); MONOCYTES PERCENT AUTO 9 % (4-13); Mean Corpuscular HGB Conc 32.1 g/dL (31.5-36.5); Mean Corpuscular Volume 90 fL (80-100); Mean Platelet Volume 8.3 fL (9.1-12.4); NEUTROPHILS ABSOLUTE AUTO 10.11 K/mm3 (1.96-9.15); NEUTROPHILS PERCENT AUTO 76 % (41-73); Platelet Count 457 K/mm3 (150-400); RDW Coefficient Variation 14.4 % (11.7-14.2); Red Blood Cell Count 4.28 M/mm3 (3.80-5.20); White Blood Cell Count 13.21 K/mm3 (4.00-11.30)
[2021-12-17 05:43] LABS: Albumin, Blood 3.1 g/dL (3.4-5.0); Anion Gap 6 mmol/L (6-16); Blood Urea Nitrogen 23 mg/dL (8-24); Bun/Creatinine Ratio 50.7 (12.0-20.0); CO2, Blood 28 mmol/L (21-32); Calcium, Blood 8.4 mg/dL (8.5-10.1); Chloride, Blood 97 mmol/L (98-108); Creatinine, Blood 0.45 mg/dL (0.40-1.00); Glomerular Filtration Rate >60 (60-); Glucose, Blood 93 mg/dL (70-99); Phosphorus, Blood 3.8 mg/dL (2.5-4.9); Potassium, Blood 4.2 mmol/L (3.5-5.5); Sodium, Blood 131 mmol/L (136-145)
--- NOTE | 2021-12-18 04:46 | NUR ---
SHIFT SUMMARY AOX2/3-SELF, PLACE, FOLLOWING DIRECTIONS. SLOW TO RESPOND. VERY FORGETFUL @TIMES. BP ELEVATED @HS 175/89 & 195/101 WHEN RECHECKED. MEDICATED c HYDRALAZINE PER EMAR & BP DECREASED TO 146/83 THIS AM. REST OF VITALS STABLE. TELE NSR c BBB. REPORTS 8/10 PAIN IN SHOULDERS, MEDICATED 1X c ULTRAM, PT ABLE TO GET ROUGHLY 1-2 HR REST. HAS BARELY SLEPT TONIGHT. REPORTS "DIFFICULTY BREATHING" HOWEVER SPO2 @90-96% ON 3L O2, HAS LABORED BREATHING @TIMES, LS DIM c SCATTERED EXP WHEEZES T/O, OCC NONPRODUCTIVE CONGESTED COUGH, RT PROVIDED FLUTTER VALVE & BREATHING TX. ANXIOUS @HS & MEDICATED 1X c 1MG ATIVAN. INCONT & ATTENDS CHANGED PRN. CALL LIGHT IN REACH. WCTM.
--- NOTE | 2021-12-18 16:22 | NUR ---
Spoke with Dr Kim prior to Pt visit and discussed case. Dr Kim reports Pt and family may benefit from discussion regarding hospice. Pt sitting on edge of bed upon arrival. Pt reports pain in her hips but unable to verbalize intensity of pain on a pain scale of 0-10. Pt is easily distractable and moderately forgetful. Daughter Susy and granddaughter Chelsy at bedside. Pt reports preference for discussion and decisions to be addressed with daughter Susy. Susy reports at baseline Pt requires assistance with transfers, ambulation, bathing, dressing, and has been experience more frequent moments of urinary incontinence. Engaged in therapeutic conversation considering hospice. Educated on hospice philosophy with V/U made by Pt and family. Pt and family are agreeable to hospice services. Discussed hospice agencies to choose from with family electing [facility]. Pt and family agreealbe to complete POLST. Educated on each section to complete and assisted with completing POLST per family request. Pt's wishes on POLST are DNR and Comfort Measures Only. No other concerns reported at this time. Spoke with Dr Kim and relayed request for hospice. Dr Kim signs POLST. Placed DNR order in [facility] per V/O from Dr Kim. Copy of POLST tubed to medical records. Palliative Care will remain available.
--- NOTE | 2021-12-18 16:54 | NUR ---
Late entry from previous note. PPS 40% ADLs 5/6 Pt high risk for readmission
--- NOTE | 2021-12-19 05:20 | NUR ---
SHIFT SUMMARY AOX2/3-SELF, PLACE, FOLLOWING DIRECTIONS. FORGETFUL & CONFUSED @TIMES. VERY ANXIOUS ABOUT BREATHING, MEDICATED 2X c 1MG ATIVAN. SPO2 90-94% ON 3L O2. LS DIM. LABOURED MOUTH BREATHING, PT STATES FREQUENTLY "IM NOT GETTING ANY OXYGEN" WHEN NC IN NARES, REMIND PT TO BREATH IN THREW NC INSTEAD OF MOUTH. HAS WET, CONGESTIVE SOUNDING COUGH, ENCOURAGED PT TO USE FLUTTER VALVE, TO DEEP BREATH & FORCE COUGH. HS BP ELEVATED @179/96, MEDICATED c HYDRALAZINE & BP DECREASED TO 133/75. REST OF VITALS STABLE. TELE NSR c PAC HR 79. REPORTS PAIN IN SHOULDERS HOWEVER UNABLE TO RATE PAIN LEVEL & STARTED REQUESTING SNACKS, REPOSITIONED. AWAITING SAFE DC PLAN. CALL LIGHT & BED ALARM IN PLACE. WILL MONITOR.
[2021-12-19] MEDS ORDERED: TRAM50 PO (16:58)
== END 2021-12-19 18:36 | disposition hospice, home (50) | DRG 643 ==
LOC: ER 09:02 → MEDS 11:19
PROVIDERS: Emergency Medicine; ADMIT Internal Medicine
DX: E22.2 Syndrome of inappropriate secretion of antidiuretic hormone (principal); E43 Unspecified severe protein-calorie malnutrition; J44.1 Chronic obstructive pulmonary disease with (acute) exacerbation; R64 Cachexia; Z68.1 Body mass index [BMI] 19.9 or less, adult; Z51.5 Encounter for palliative care; Z66 Do not resuscitate; J96.11 Chronic respiratory failure with hypoxia; J84.9 Interstitial pulmonary disease, unspecified; Z20.822 Contact with and (suspected) exposure to COVID-19; R07.81 Pleurodynia; R22.40 Localized swelling, mass and lump, unspecified lower limb; E78.00 Pure hypercholesterolemia, unspecified; F10.20 Alcohol dependence, uncomplicated; F41.9 Anxiety disorder, unspecified; F32.A Depression, unspecified; F17.210 Nicotine dependence, cigarettes, uncomplicated; Z88.1 Allergy status to other antibiotic agents; Z88.8 Allergy status to other drugs, medicaments and biological substances; Z86.73 Personal history of transient ischemic attack (TIA), and cerebral infarction without residual deficits; Z88.5 Allergy status to narcotic agent; Z90.710 Acquired absence of both cervix and uterus; Z79.899 Other long term (current) drug therapy; Z79.52 Long term (current) use of systemic steroids; Z99.81 Dependence on supplemental oxygen; Z90.49 Acquired absence of other specified parts of digestive tract
CPT/HCPCS: 0241U; 36415; 71045; 71111; 71260; 80048; 80053; 80069; 83880; 83935; 84145; 84300; 84443; 84484; 85025; 85379; 93005; 93010; 94640; 94664; 94760; 96374; 97110; 97161; 97530; 99285-25; A9270; G0480; J0360; J0696; J1650; J1940; J7030; Q9967

== ENCOUNTER 2021-12-25 06:23 | Inpatient (IN) | payer MEDICARE ==
[~2021-12-25] VITALS: Ht 167.6 cm; Wt 49.9 kg
[~2021-12-25 06:23] MED LIST changes: +TRAM50 PO
[2021-12-25 08:27] LABS: BASOPHILS ABSOLUTE AUTO 0.07 K/mm3 (0.00-0.23); BASOPHILS PERCENT AUTO 0 % (0-2); EOSINOPHILS ABSOLUTE AUTO 0.04 K/mm3 (0.00-0.68); EOSINOPHILS PERCENT AUTO 0 % (0-6); Hematocrit 41.5 % (33.0-51.0); Hemoglobin 13.8 g/dL (11.5-16.0); IMMATURE GRAN ABSOLUTE AUTO 0.12 K/mm3 (0.00-0.10); IMMATURE GRAN PERCENT AUTO 1 % (0-1); LYMPHOCYTES ABSOLUTE AUTO 1.26 K/mm3 (0.84-5.20); LYMPHOCYTES PERCENT AUTO 7 % (21-46); MONOCYTES ABSOLUTE AUTO 0.92 K/mm3 (0.16-1.47); MONOCYTES PERCENT AUTO 5 % (4-13); Mean Corpuscular HGB 29.3 pg (26.0-34.0); Mean Corpuscular HGB Conc 33.3 g/dL (31.5-36.5); Mean Corpuscular Volume 88 fL (80-100); NEUTROPHILS ABSOLUTE AUTO 15.36 K/mm3 (1.96-9.15); NEUTROPHILS PERCENT AUTO 86 % (41-73); Platelet Count 353 K/mm3 (150-400); RDW Coefficient Variation 13.7 % (11.7-14.2); RDW Standard Deviation 44.2 fL (35.1-46.3); Red Blood Cell Count 4.71 M/mm3 (3.80-5.20); White Blood Cell Count 17.77 K/mm3 (4.00-11.30)
[2021-12-25 08:51] LABS: Alanine Aminotransfer (ALT/SGP 23 U/L (12-78); Albumin, Blood 3.6 g/dL (3.4-5.0); Albumin/Globulin Ratio 1.2 (0.8-1.8); Alk Phos 71 U/L (50-136); Anion Gap 6 mmol/L (6-16); Aspartate Aminotrans (AST/SGOT 14 U/L (12-37); Bilirubin, Total 0.4 mg/dL (0.1-1.0); Blood Urea Nitrogen 10 mg/dL (8-24); Bun/Creatinine Ratio 25.6 (12.0-20.0); CO2, Blood 30 mmol/L (21-32); Calcium, Blood 8.7 mg/dL (8.5-10.1); Chloride, Blood 96 mmol/L (98-108); Creatinine, Blood 0.39 mg/dL (0.40-1.00); Globulin, Blood 3.1 g/dL (2.2-4.0); Glomerular Filtration Rate >60 (60-); Glucose, Blood 98 mg/dL (70-99); Potassium, Blood 3.6 mmol/L (3.5-5.5); Sodium, Blood 132 mmol/L (136-145); Total Protein, Blood 6.7 g/dL (6.4-8.2)
[2021-12-25 10:58] LABS: Influenza A, PCR NEGATIVE (NEGATIVE); Influenza B, PCR NEGATIVE (NEGATIVE); Resp Syncytial Virus, PCR NEGATIVE (NEGATIVE); SARS-Cov-2 (COVID-19) PCR, MMC NEGATIVE (NEGATIVE)
--- NOTE | 2021-12-25 18:14 | NUR ---
Pt recently admitted to [facility] with Interstitial Lung Disease, COPD, Cachexia. The patient lives with her daughter Rubina. According to Rubina, pt had an unwitnessed fall today while visiting her son's home. She has a fractured left femoral neck. Initially, the family was interested in surgical repair for comfort, but Dr. Lo informed family it was unlikely the patient would tolerate surgery, much less gain better pain control, or be able to participate in any meaningful rehad. Family decided on comfort care. Was unable to reach Dr. Brian, but did reach Dr. Armas. Orders being placed at this time.
--- NOTE | 2021-12-25 19:14 | NUR ---
SHIFT SUMMARY PATIENT NEW ADMIT TO UNIT FROM ER. LEFT HIP FX. BEDREST. HAMMER PATENT AND DRAINING. SLEEPING BUT WAKES TO VERBAL STIMULI. MEDICATED FOR PAIN WITH 0.5 MG DILAUDID Q2 HR. DECISION MADE BY FAMILY TO PLACE PATIENT ON COMFORT CARE AND NOT DO SURGERY. REPORT GIVEN TO SENIOR NET APPLICATION DEVELOPER RN.
--- NOTE | 2021-12-25 20:00 | NUR ---
PT LYING IN BED, NO DISTRESS NOTED, APPEARS TO BE SLEEPING, AWAKENS TO VERBAL STIMULI, MUMBLES A FEW INCOHERRANT WORDS. 2LO2 IN PLACE, IVF RUNNING (PLAN TO CLARIFY FLUID ORDERS) JAQUELIN SALINAS. PO FLUIDS OFFERRE; PT DECLINED. PLAN TO MONITOR AMD TX PER ORDERS. BED ALARM ON FOR SAFETY.
--- NOTE | 2021-12-25 21:59 | NUR ---
PT GENTLY REPOSITIONED, DENIED PAIN. ORAL CARE COMPLETED, PT ASSISTEDW/SIP OF WATER, ONLY TOOK SMALL SIP. BED ALARM ON.
--- NOTE | 2021-12-26 06:13 | NUR ---
PT APPEARED TO SLEEP FOR MAJORITY OF NIGHT. NO DISTRESS NOTED AT REST. PAIN MGD W/10MG ROXANOL W/REP RELIEF. PT REPOSITIONED KELLEN. PT ASSISTED W/SIPS OF WATER, PO INTAKE MINIMAL. HAMMER DRNG BETO URINE. 4LO2 IN PLACE FOR COMFORT, LUNGS COARSE W/OCC LOOSE COUGH. PT MORE ALERT THIS AM. BED ALARM ON FOR SAFETY.
--- NOTE | 2021-12-26 13:21 | NUR ---
Spiritual Care Attempt. Pt. is in bed resting but responds to my entrance. Pt. initially welcomes my visit. As rapport was being devloped the pt. abruptly verbalizes gratitude for the visit, but declined further spiritual care.
--- NOTE | 2021-12-26 19:53 | NUR ---
SHIFT SUMMARY PT REFUSED REPOSITIONING BEGINNING OF SHIFT BUT WAS AGGREABLE w/ MORE ENCOUREMENT THIS AFTERNOON. PAIN APPEARS TO BE WELL MANAGED THIS AFTERNOON. HAS ONLY TAKEN SIPS & BITES T/O SHIFT. FAMILY ATTENTIVE.
--- NOTE | 2021-12-26 20:52 | NUR ---
PT MEDICATED PER EMAR FOR PAIN, RESTING COMFORTABLY AT REASSESSMENT. ATTENDS CHECKED, CLEAN AND DRY. FAMILY REASSURED. PATIENT DID NOT WANT TO REPOSITION AT THIS TIME.
--- NOTE | 2021-12-26 22:59 | NUR ---
PT DENIES PAIN, RFUSES TO BE REPOSITIONED AT THIS TIME. SIPS OF WATER AND APPLE JUICE TAKEN IN. PT DENIES ANY DISCOMFORT AT THIS TIME.
--- NOTE | 2021-12-26 23:36 | NUR ---
PT APPEARED MORE ANXIOUS ON ROUNDING, MEDICATED WITH 1MG ATIVAN, RESPOSITIONED HIGH FOWLERS. LIQUID HYDRATION GIVEN VIA STRAW. PT REASSESSED AND IS NOW RESTING COMFORTABLY.
--- NOTE | 2021-12-27 01:14 | NUR ---
PT IS SITTING UP SEMI FOWLERS, PILLOWS UNDER HIPS BILAT. SLEEPING BEATHING UNLABORED, LOOKS COMFORTABLE. CALL LIGHT IN REACH.
--- NOTE | 2021-12-27 03:14 | NUR ---
PT SLEEPING COMFORTABLY, ORAL CARE COMPLETE. HOB AT 30 DEGREES. CALL LIGHT IN REACH.
--- NOTE | 2021-12-27 04:48 | NUR ---
SHIFT SUMMARY PT IS AOX3, ABLE TO USE CALL LIGHT. PT MEDICATED FOR PAIN AND ANXIETY THROUGHOU SHIFT, RESPONDED WELL. OFFERED REPOSITIONING Q2, PT DECLINED TURNS ONCE THIS SHIFT. PT TOLERATED PO INTAKE, AND ORAL CARE WITH REPOSITIONING AFTER MEDICATED PER EMAR FOR ANXIETY. NO BM THIS SHIFT, ATTENDS CLEAN AND DRY. PT RESTING COMFORTABLY, WILL CONTINUE COMFORT CARE ROUNDING.
--- NOTE | 2021-12-27 05:46 | NUR ---
PT REFUSING TO REPOSITION AT THIS TIME, CATH CARE COMPLETED ON 0500 HOUR. ORAL CARE DONE.
--- NOTE | 2021-12-27 06:34 | NUR ---
REPOSITIONED TO LEFT, PT TOLERATED HEAD BEING PUT DOWN TO 20 DEGREES. HYDRATION AND ORAL CARE OFFERED.
--- NOTE | 2021-12-27 06:37 | NUR ---
PT SLEPT FOR MAJORITY OF NIGHT. AWAKENS TO VERBAL STIMULI, HAS BEEN A/O X2 THIS SHIFT, ABLE TO COMMUNICATE PAIN AND POSITIONING NEEDS. MED FOR PAIN AND ANXIETY PER EMAR. PT REFUSING MOST REPOSITIONING, ONLY ALLOWING MINIMAL SHIFTING. PO INTAKE MINIMAL, HAMMER W/SMALL AMT BETO URINE.
--- NOTE | 2021-12-27 13:26 | NUR ---
PATIENT REFUSES REPOSITIONING. ASKED PATIENT IF SHE WAS COMFORTABLE & SHES STATES "NO", THEN ASK PATIENT IF SHE IS OKAY WITH US REPOSITIONING HER & SHE STATES "NO, DONT TOUCH ME". WILL CONTINUE TO ENCOURAGE REPOSITIONING & ENCOURAGE FAMILY TO DISCUSS W/ PATIENT. FAMILY NOT PRESENT AT THIS TIME.
--- NOTE | 2021-12-27 15:27 | NUR ---
PATIENT APPEARAS ANXIOUS AND CALLING OUT "HELP ME, WHERE IS EVERYONE, TELL MY DAUGHTER TO COME HERE AND STAY HERE, I NEED TO SEE HER FACE TO FACE". REASSURED PATIENT THAT WE ARE HERE FOR HER NEEDS. FAMILY IS AT BEDSIDE REASSSURING PATIENT WELL. MEDICATED W/ ROXANOL PER PT & FAMILY REQUEST.
--- NOTE | 2021-12-27 17:56 | NUR ---
This pt has been refusing care from staff, both medications and ADL care such as turning. She is likely having pain, but refusing meds unless family is present. Her daughters request scheduling pain medication, gentle education provided on reasons for PRN medications related to pt's health, and cachexia. Palliative will work with staff on using various techniques to offer pain medication such as reapproaching, and reminding the patient it is to help her manage the pain. Discussed with Dr. Busby, and he ordered a low dose Fentanyl patch (12mcg) for pt. This may be the best solution at this time. Unsure about pt's last BM, will add I and O back to plan of care as pt may need either routine or prn bowel care. Palliative will remain available. Pt does not give a number to her pain, but appears to have MODERATE pain using Face scale. PPS score 20% Karnofsky score 30% FAST scale 6e.
--- NOTE | 2021-12-27 18:06 | NUR ---
CALLED PALLIATIVE CARE TO DISCUSS COMFORT CARE MEASURES W/ FAMILY. RACHNA, PALLIATIVE CARE RN TO BEDSIDE W/ THIS RN TO DISCUSS PAIN MANAGMENT, REPOSITIONING, COMFORT MEASURES BEING PROVIDED, & PATIENTS FREQUENT REFUSALS OF CARE AND MEDICATION. DISCUSSED HOW PATIENT FREQUENTLY REFUSES PAIN MEDICATION & REPOSITIONING WHEN THE FAMILY IS NOT PRESENT. PATIENT VERBALIZES THAT SHE WILL BE AGREEABLE AT THIS TIME, ALTHOUGH FAMILY HAS NOT BEEN ABSENT YET. DISCUSSED WITH FAMILY ABOUT COMING UP WITH A PLAN OR "PHRASE" FOR RN'S TO USE WITH PATIENT THAT WILL ENCOURAGE PATIENT TO TAKE PAIN MEDICATION WHEN OFFERRED & NEEDED. WILL PASS ON TO NOC RN AND SEE IF THIS HELPS BETTER MANAGE PATIENTS PAIN.
--- NOTE | 2021-12-27 19:08 | NUR ---
SHIFT SUMMARY PATIENT IS ON COMFORT CARE. ATTEMPTED TO MEDICATE & REPOSITION PATIENT FREQUENTLY T/O SHIFT WHEN SHE APPEARED TO BE OR VERBALLY TOLD ME SHE WAS IN PAIN OR UNCOMFORTABLE. PATIENT REFUSED MULTIPLE TIMES, ESPECIALLY WHEN FAMILY IS NOT AT BEDSIDE. SHE IS MORE COOPERATIVE AND ACCEPTING OF CARE FROM STAFF WHEN FAMILY IS AT BEDISE. REASSURED PATIENT T/O SHIFT THAT WE ARE HERE TO HELP MANAGE HER PAIN AND KEEP HER COMFORTABLE. DICUSSIONS W/ FAMILY ABOUT ENCOURAGING PATIENT TO ACCEPT PAIN MEDICATION WHEN SHE FEELS SHE NEEDS IT & TO LET STAFF REPOSITION HER TO PREVENT BED SORES. WILL CONTINUE TO REINFORCE AND PASS ON TO ONCOMING RN.
--- NOTE | 2021-12-28 04:58 | NUR ---
COMFORT CARE PT, ALERT HAS SLEPT MOST OF SHIFT. PT COMPLIANT WITH MEDICATIONS THIS SHIFT. FAMILY VISITS PT BUT LEAVES AT 2130. FAIMLY EXPRESSES CONCERNS OVER CARE OF THEIR FAMILY MEMBER, THIS NURSE RECOMMENDS PALLIATIVE CARE TEAM TO EDUCATE FAMILY ON COMFORT CARE. PT SLEEPS MOST OF THE SHIFT, COMPLIANT WITH Q2 TURNS. WILL CONTINUE TO MONITOR THIS PATIENT.
--- NOTE | 2021-12-28 07:30 | NUR ---
PATIENT APEPARS TO BE SLEEPING COMFORTABLY IN BED & IS SNORING AT THIS TIME. NO FAMILY MEMBERS CYRRENTLY PRESENT.
--- NOTE | 2021-12-28 09:27 | NUR ---
PATIENT SLEEPING IN BED, WOKE UP TO MY VOICE AND REQUESTED TO CONTINUE SLEEPING. APPLIED LIP MOISTURIZER TO LIPS. REPLACED FENTANYL PATCH. CALL LIGHT IN REACH.
--- NOTE | 2021-12-28 11:22 | NUR ---
PRE MEDICATED PATIENT FOR REPOSITIONING ABOUT 1030 W/ ROXANOL PER EMAR. CL, PALLIATIVE CARE RN, TO BEDSIDE TO TALK WITH ONE OF THE PATIENTS DAUGHTERS. PATIENT RESTING IN BED AT THIS TIME, REPOSITIONED TO R SIDE WITH PILLOW UNDER BOTH LEGS AT CALVES AND UNDER R ARM. CATH CARE DONE. PATIENT OPENED EYES AND LOOKED AT ME WHEN EXPLAINING CARE TO HER, DID NOT VERBALLY RESPOND. DAUGHTER REMAINED AT BEDSIDE.
--- NOTE | 2021-12-28 12:36 | NUR ---
Review of pt needs and family concerns with physician and charge nurse and bedside nurse. Met with pt daughter who has been her primary caregiver. She is showing considerable caregiver stress. She reviewed her sisters stress at withholding fluids and IV. Judicious and gentle review of forced hydration and facrced feeding. Reivew of medications and absorbtion and consitant pain control that is not two sedating. Review of the complex pain her mother is experinceing from an inoperable fracture. [facility] hospice came by to review and revoke hospice. After they left pt therapeutic case manager from senior services called for an update. After the call daughter and I reviewed their finacial and caregiving stress at placement. Advised her to speak to senior services or the foster care social worker on assests and the POA they have on their mother so they can maintain the family home and get their mother the care they need. Reaffirmed her primary concerns and stress praised and offered help and suggestions for self care. Advised I will be available if she wants met to come when her sister arrives. Reenforced it is her choice. Will update physician of diagnosis of alcohol use on chart is incorrect. They state she was a heavey smoke but rare use of alcohol.
--- NOTE | 2021-12-28 13:16 | NUR ---
PATIENT RESTING IN BED, APPEARS TO BE SLEEPING. OPENS HER EYES TO MY VOICE BUT DOES NOT RESPOND. NO FAMILY PRESENT AT THIS TIME.
--- NOTE | 2021-12-28 15:04 | NUR ---
PATIENT RESTING IN BED, APPEARS TO BE SLEEPING & IS SNORING. FAMILY PRESENT AT BEDSIDE. FAMILY REQUESTED TO HAVE FENTANYL PATCH REMOVED TO "SEE IF SHE WILL WAKE UP MORE". PATIENT DOES NOT WAKE UP TO MY VOICE AT THIS TIME. REMOVED FENTANYL PATCH PER REQUEST. PLAN TO MEDICATE WITH ROXANOL FOR REPOSITINING FAMILY REQUESTS, SEE EMAR.
--- NOTE | 2021-12-28 15:54 | NUR ---
REPOSITIONED PATIENT TO LEFT SIDE. MEPILEX REMAINS IN PLACE TO COCYX, NO NEW REDNESS NOTED. FAMILY AT BEDISE AND REPORTS PATIENT LOOKS COMFORTABLE AFTER POSITIONING. PRE MEDICATED PRIOR TO MOVEMENT PER FAMILY REQUEST.
--- NOTE | 2021-12-28 18:11 | NUR ---
PATIENT APPEARS TO BE SLEEPING COMFORTABLY, DOES NOT APPEAR THAT SHE IS HAVIGN DIFFICULTY BREATHING ALTHOUGH HER RESPIRATIONS ARE AT 10 RESP/MIN. SECRETIONS SEEM TO BE HAVE IMPRVED SINCE ATROPINE. PATIENTS ARMS/HANDS ARE WARM AND SWEATY TO THE TOUCH, PULLED ONE OF HER FLEECE BLANKETS BACK TO WAIST. NO FAMILY PRESENT AT THIS TIME.
--- NOTE | 2021-12-29 01:23 | NUR ---
AT 0115 THIS RN WAS APPROACHED BY FAMILY MEMBERS OF THE PT. THEY STATED THAT THE PT IS NOT BREATHING. THIS RN WENT IN TO THE ROOM AND ASSESSED THE PT, THERE WAS NO BREATHING, AND NO APICAL PULSE COULD BE HEARD WITH STETHOSCOPE. CALLED AT 0120.
--- NOTE | 2021-12-29 04:51 | NUR ---
[facility] PICKS UP PT BODY AT 0425.
== END 2021-12-29 01:20 | DRG 951 ==
LOC: ER 06:23 → SURS 06:24 → ER 09:35 → SURS 09:35
PROVIDERS: Emergency Medicine; ADMIT Internal Medicine
DX: Z51.5 Encounter for palliative care (principal); S72.002A Fracture of unspecified part of neck of left femur, initial encounter for closed fracture; E43 Unspecified severe protein-calorie malnutrition; J96.21 Acute and chronic respiratory failure with hypoxia; J84.9 Interstitial pulmonary disease, unspecified; R64 Cachexia; Z68.1 Body mass index [BMI] 19.9 or less, adult; Z20.822 Contact with and (suspected) exposure to COVID-19; W18.30XA Fall on same level, unspecified, initial encounter; G31.2 Degeneration of nervous system due to alcohol; F10.10 Alcohol abuse, uncomplicated; J44.9 Chronic obstructive pulmonary disease, unspecified; Z66 Do not resuscitate; Z79.899 Other long term (current) drug therapy; Z88.8 Allergy status to other drugs, medicaments and biological substances; Z88.5 Allergy status to narcotic agent; Z88.1 Allergy status to other antibiotic agents; Z90.710 Acquired absence of both cervix and uterus; Z90.49 Acquired absence of other specified parts of digestive tract; Z98.890 Other specified postprocedural states
CPT/HCPCS: 0241U; 36415; 51702; 51798; 71045; 73502; 80053; 85025; 94640; 94664; 94760; 96374; 96375; 96376; 99284-25; A9270; G0378; J1170; J2405; J7030